=== PATIENT | female | born 1990 | race African-American/Black ===

== ENCOUNTER 2017-12-16 09:59 | Emergency (ER) | payer BC, OTHER ==
[2017-12-16 10:04] VITALS: RESP 18
[2017-12-16] MEDS ORDERED: ACETAMINOPHEN TAB 325 MG TAB PO STA (10:59)
[2017-12-16 12:44] LABS: Basophils % (A) 1 %; Eosinophils # (A) 0.1 k/uL (0-0.7); Eosinophils % (A) 1 %; HCT 42.3 % (34.0-46.0); HGB 13.7 gm/dL (11.4-16.0); Lymphocytes # (A) 1.8 k/uL (1.0-4.8); Lymphocytes % (A) 28 %; MCH 28.9 pg (25.0-35.0); MCHC 32.5 g/dL (31.0-37.0); MCV 88.7 fL (80.0-100.0); Mean Platelet Volume 7.1; Monocytes # (A) 0.2 k/uL (0-1.0); Monocytes % (A) 4 %; Neutrophils # (A) 4.1 k/uL (1.3-7.7); Neutrophils % (A) 65 %; Platelet Count 317 k/uL (150-450); RBC 4.76 m/uL (3.80-5.40); RDW 13.6 % (11.5-15.5); WBC 6.3 k/uL (3.8-10.6)
--- NOTE | 2017-12-16 12:48 | US ---
EXAMINATION TYPE: Transabdominal DATE OF EXAM: 05/28/17 COMPARISON: NONE CLINICAL HISTORY: LLQ cramping. Left pelvic cramping, history of 2 D&C's EXAM PERFORMED: Transvaginal (TV) and Transabdominal (TA) EXAM MEASUREMENTS: GESTATIONAL AGE / DATING Physician Established: Not yet established Dates by LMP: (5 weeks/0 days) EDC: 08/18/18 Dates by First Scan: no prior scan here Dates by Current Scan for: Unable to date by today's study MATERNAL ANATOMY Uterus: 8.4 x 5.4 x 6.3cm Right Ovary: 7.0 x 3.9 x 5.0cm Left Ovary: 3.5 x 2.6 x 2.1cm Post CDS / Adnexa: free fluid right adnexa and cul-de-sac Presence of free fluid: yes Presence of corpus luteal cyst: yes, left ovary = 2.5 x 2.1 x 1.7cm GESTATION / SURVEY MSD: 0.8cm too small to accurately date Yolk Sac (normal less than 6mm): not seen No evidence of pole at this time Date of LMP: 11/11/17 Beta HcG (if available): Not available at this time Possible gestational sac visualized within uterus. No evidence of pole or yolk sac at this time . Cystic area right ovary = 5.9 x 3.7 x 5.6cm. Possible corpus luteum left ovary. Free fluid right ad nexa and cul-de-sac IMPRESSION: 1. Probable Intrauterine gestational sac without pole identified. The findings might reflect no rmal early IUP however blighted ovum or missed spontaneous difficult to exclude. Correlate c linically with serial beta hCG and/or ultrasound. 2. Probable left ovarian corpus luteal cyst. Small amount of free fluid noted.
[2017-12-16 12:57] LABS: ALT 21 U/L (9-52); AST 14 U/L (14-36); Albumin 3.9 g/dL (3.5-5.0); Alkaline Phosphatase 95 U/L (38-126); Anion Gap 7 mmol/L; Blood Urea Nitrogen 8 mg/dL (7-17); Calcium 9.7 mg/dL (8.4-10.2); Carbon Dioxide 24 mmol/L (22-30); Chloride 107 mmol/L (98-107); Glucose 85 mg/dL (74-99); Potassium 4.3 mmol/L (3.5-5.1); Sodium 138 mmol/L (137-145); Total Bilirubin 0.5 mg/dL (0.2-1.3); Total Protein 7.5 g/dL (6.3-8.2)
[2017-12-16 13:01] LABS: Appearance,Urine Clear (Clear); Bilirubin,Urine Negative (Negative); Blood,Urine Negative (Negative); Color,Urine Colorless; Glucose,Urine (UA) Negative (Negative); Ketones,Urine Negative (Negative); Leukocyte Esterase,Urine Negative (Negative); Nitrite,Urine Negative (Negative); PH, Urine 6.5 (5.0-8.0); Protein,Urine Negative (Negative); Specific Gravity,Urine 1.002 (1.001-1.035); Urobilinogen,Urine <2.0 mg/dL (<2.0)
--- NOTE | 2017-12-16 14:39 | ED ---
Abdominal Pain HPI - General Chief Complaint: Abdominal Pain Stated Complaint: 6wks preg, abd pain Time Seen by Provider: 12/16/17 10:45 Source: patient Mode of arrival: ambulatory Limitations: no limitations - History of Present Illness Initial Comments: 27-year-old female presenting today for chief complaint of vaginal discharge and left-sided pelvic pain pain times one day. Patient states that she's had vaginal discharge for 2 months, she states she was evaluated by another physician where testing was obtained negative for STD. Patient denies any new changes in discharge. Patient denies fever, chills or right upper quadrant pain. Patient states that she has had left-sided pelvic pain that began earlier this afternoon, she was concerned and presented to the emergency department. Patient says she should be 6 weeks , LMP 11/11/17. 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 Fraga, yet but is scheduled for an appointment. She states that she has had a quantitative hCG of 450 taken last week. Patient denies vaginal bleeding, nausea, vomiting, diarrhea, fever, chills and other associated symptoms. Remainder of ROS negative. Upon arrival patient appears well. No signs of acute distress. - Related Data Home Medications Medication Instructions Recorded Confirmed Acetaminophen Tab [Tylenol Tab] 500 mg PO Q6H PRN 12/16/17 12/16/17 Ffu-Dtxc-[id number] Acid 1 cap PO DAILY 12/16/17 12/16/17 [-U Capsule (formulary)] Allergies Allergy/AdvReac Type Severity Reaction Status Date / Time No Known Allergies Allergy Verified 12/16/17 10:19 Review of Systems ROS Statement: Those systems with pertinent positive or pertinent negative responses have been documented in the HPI. ROS Other: All systems not noted in ROS Statement are negative. Constitutional: Denies: fever, chills, night sweats ENT: Denies: ear pain, throat pain Respiratory: Denies: cough, dyspnea, wheezes, hemoptysis, stridor Cardiovascular: Denies: chest pain, palpitations Endocrine: Denies: fatigue Gastrointestinal: Reports: as per HPI (left sided pelvic pain). Denies: abdominal pain, nausea, vomiting, diarrhea, constipation Genitourinary: Denies: urgency, dysuria, frequency, hematuria Musculoskeletal: Denies: back pain Skin: Denies: rash, lesions Neurological: Denies: headache, weakness, numbness, paresthesias, confusion Past Medical History Past Medical History: No Reported History History of Any Multi-Drug Resistant Organisms: MRSA Date of last positivie culture/infection: 09/21/2008 MDRO Source:: Urine Past Surgical History: Adenoidectomy, Tonsillectomy Additional Past Surgical History / Comment(s): D&C Past Anesthesia/Blood Transfusion Reactions: No Reported Reaction Past Psychological History: Anxiety Smoking Status: Current every day smoker Past Alcohol Use History: None Reported Past Drug Use History: None Reported - Past Family History Mother Family Medical History: No Reported History General Exam - General Exam Comments Initial Comments: General: The patient is awake and alert, in no distress, and does not appear acutely ill. Eye: Pupils are equal, round and reactive to light, extra-ocular movements are intact. No nystagmus. There is normal conjunctiva bilaterally. No signs of icterus. Cardiovascular: There is a regular rate and rhythm. No murmur, rub or gallop is appreciated. Respiratory: Lungs are clear to auscultation, respirations are non-labored, breath sounds are equal. No wheezes, stridor, rales, or rhonchi. Gastrointestinal: No noted diaphoresis, jaundice, pallor, protecting postures or squirming. Symmetrical pigmentation of abdomen without signs of inflammation. Striae present over abdomen. Umbilicus mildline, inverted without swelling. No dilated veins. Abdomen contour obese, no noted abdominal distention. No visible masses. No peristalsis, aortic pulsations, or ventral hernia. Bowel sounds audible in all 4 quadrants, unremarkable. Mild tenderness to the palpation of the lower pelvic region. No tenderness to light or deep palpation of the RUQ, LUQ, LLQ, RLQ. Liver edge, not palpable. Spleen edge, right and left kidney not palpable. Superior bladder margin non-tender. Special Testing: Negative Grahn, Rovsing, McBurney, Andrei, Negative Heel Jar test/clemente sign. No CVA tenderness. Digital rectal exam deferred. Negative stanley turners or cullens sign. See Pelvic exam. Musculoskeletal: Normal ROM, no tenderness. Strength 5/5. Sensation intact. Radial pulses equal bilaterally 2+. Neurological: A&O x 3. CN II-XII intact, There are no obvious motor or sensory deficits. Coordination appears grossly intact. Speech is normal. Skin: Skin is warm and dry and no rashes or lesions are noted. Psychiatric: Cooperative, appropriate mood & affect, normal judgment. Limitations: no limitations External exam: Present: normal external exam Speculum exam: Present: vaginal discharge (white discharge). Absent: erythema, cervical discharge, vaginal bleeding, laceration By manual exam: Present: normal by manual exam, uterine enlargement. Absent: cervical motion tenderness, adnexal tenderness, adnexal mass Expanded Female exam: Absent: vaginal laceration, tissue present in vagina, herpetic lesions, vulvar erythema, vulvar tenderness, foreign body Speculum exam: Present: cervical OS closed Course Vital Signs 12/16/17 12/16/17 12/16/17 10:00 12:53 14:46 Temperature 98.1 F 98.0 F Pulse Rate 130 H 79 96 Respiratory 18 18 18 Rate Blood Pressure 132/86 114/70 120/73 O2 Sat by Pulse 98 99 98 Oximetry Medical Decision Making - Medical Decision Making PE as noted above, no adnexal tenderness on exam, negative chandelier sign, Os closed. U/S revealed gestational sac, most likely blight ovum as well as a corpus luteum cyst on the left ovary, with small amount of free fluid in anexa most likely from rupture corpus luteal cyst. Pt states she does not want to keep . HGB 9,120. Pt trichomonas (+). Pt given 2g metronidazole for treatment, findings discussed with patient as well as importance of treating partner. Dr. Ness was contacted who spoke with attending phyiscian Dr. Flores who stated pt is stable for discharge with follow-up including U/S and repeat HCG quant. Pt is O+ upon chart review no RhoGam needed at this time. Case discussed with Dr. Flores, pt discharged in stable condition after discussing all results with patient. Return parameters discussed in detail. Patient verbalizes understanding. - Lab Data Result diagrams: 12/16/17 12:30 12/16/17 12:30 Lab Results 12/16/17 12/16/17 12/16/17 Range/Units 12:30 12:30 12:30 WBC 6.3 (3.8-10.6) k/uL RBC 4.76 (3.80-5.40) m/uL Hgb 13.7 (11.4-16.0) gm/dL Hct 42.3 (34.0-46.0) % MCV 88.7 (80.0-100.0) fL MCH 28.9 (25.0-35.0) pg MCHC 32.5 (31.0-37.0) g/dL RDW 13.6 (11.5-15.5) % Plt Count 317 (150-450) k/uL Neutrophils % 65 % Lymphocytes % 28 % Monocytes % 4 % Eosinophils % 1 % Basophils % 1 % Neutrophils # 4.1 (1.3-7.7) k/uL Lymphocytes # 1.8 (1.0-4.8) k/uL Monocytes # 0.2 (0-1.0) k/uL Eosinophils # 0.1 (0-0.7) k/uL Basophils # 0.0 (0-0.2) k/uL Sodium 138 (137-145) mmol/L Potassium 4.3 (3.5-5.1) mmol/L Chloride 107 (98-107) mmol/L Carbon Dioxide 24 (22-30) mmol/L Anion Gap 7 mmol/L BUN 8 (7-17) mg/dL Creatinine 0.64 (0.52-1.04) mg/dL Est GFR (CKD-EPI)AfAm >90 (>60 ml/min/1.73 sqM) Est GFR (CKD-EPI)NonAf >90 (>60 ml/min/1.73 sqM) Glucose 85 (74-99) mg/dL Calcium 9.7 (8.4-10.2) mg/dL Total Bilirubin 0.5 (0.2-1.3) mg/dL AST 14 (14-36) U/L ALT 21 (9-52) U/L Alkaline Phosphatase 95 (38-126) U/L Total Protein 7.5 (6.3-8.2) g/dL Albumin 3.9 (3.5-5.0) g/dL HCG, Quant 9120.8 mIU/mL Urine Color Urine Appearance (Clear) Urine pH (5.0-8.0) Ur Specific Jackson (1.001-1.035) Urine Protein (Negative) Urine Glucose (UA) (Negative) Urine Ketones (Negative) Urine Blood (Negative) Urine Nitrite (Negative) Urine Bilirubin (Negative) Urine Urobilinogen (<2.0) mg/dL Ur Leukocyte Esterase (Negative) Urine HCG, Qual (Not Detectd) Trichomonas Ag (Rapid) (Negative) 12/16/17 12/16/17 12/16/17 Range/Units 12:56 12:56 14:11 WBC (3.8-10.6) k/uL RBC (3.80-5.40) m/uL Hgb (11.4-16.0) gm/dL Hct (34.0-46.0) % MCV (80.0-100.0) fL MCH (25.0-35.0) pg MCHC (31.0-37.0) g/dL RDW (11.5-15.5) % Plt Count (150-450) k/uL Neutrophils % % Lymphocytes % % Monocytes % % Eosinophils % % Basophils % % Neutrophils # (1.3-7.7) k/uL Lymphocytes # (1.0-4.8) k/uL Monocytes # (0-1.0) k/uL Eosinophils # (0-0.7) k/uL Basophils # (0-0.2) k/uL Sodium (137-145) mmol/L Potassium (3.5-5.1) mmol/L Chloride (98-107) mmol/L Carbon Dioxide (22-30) mmol/L Anion Gap mmol/L BUN (7-17) mg/dL Creatinine (0.52-1.04) mg/dL Est GFR (CKD-EPI)AfAm (>60 ml/min/1.73 sqM) Est GFR (CKD-EPI)NonAf (>60 ml/min/1.73 sqM) Glucose (74-99) mg/dL Calcium (8.4-10.2) mg/dL Total Bilirubin (0.2-1.3) mg/dL AST (14-36) U/L ALT (9-52) U/L Alkaline Phosphatase (38-126) U/L Total Protein (6.3-8.2) g/dL Albumin (3.5-5.0) g/dL HCG, Quant mIU/mL Urine Color Colorless Urine Appearance Clear (Clear) Urine pH 6.5 (5.0-8.0) Ur Specific Jackson 1.002 (1.001-1.035) Urine Protein Negative (Negative) Urine Glucose (UA) Negative (Negative) Urine Ketones Negative (Negative) Urine Blood Negative (Negative) Urine Nitrite Negative (Negative) Urine Bilirubin Negative (Negative) Urine Urobilinogen <2.0 (<2.0) mg/dL Ur Leukocyte Esterase Negative (Negative) Urine HCG, Qual Detected (Not Detectd) Trichomonas Ag (Rapid) Positive H (Negative) Disposition Clinical Impression: Blighted ovum, Corpus luteum cyst, Trichomonas infection Disposition: HOME SELF-CARE Condition: Good Instructions: Vaginal Discharge (ED) Additional Instructions: Please use medication as discussed. Please follow-up with OBGYN Dr. Ness in next 1-2 days. Please return to emergency room if the symptoms increase or worsen or for any other concerns. Is patient prescribed a controlled substance at d/c from ED?: No Referrals: Marcia Donnelly MD [Primary Care Provider] - 1-2 days Catie Ness MD [STAFF PHYSICIAN] - 1-2 days Time of Disposition: 14:39
[2017-12-16 14:47] VITALS: BP 120/73; PULSE 96; TEMP 98
[2017-12-16] MEDS ORDERED: metroNIDAZOLE 500 MG TAB PO STA (14:49)
[2017-12-17 14:30] LABS: C. trachomatis,PCR Negative (Neg,Equiv); Chlamydia trachomatis Source Vagina; N. gonorrhoeae,PCR Negative (Neg,Equiv); Neisseria Source Vagina
== END 2017-12-16 14:50 | disposition home or self-care (01) ==
LOC: EC 09:59
DX: O02.0 Blighted ovum and nonhydatidiform mole (principal); N83.12 Corpus luteum cyst of left ovary; O98.311 Other infections with a predominantly sexual mode of transmission complicating pregnancy, first trimester; Z3A.01 Less than 8 weeks gestation of pregnancy; O99.331 Smoking (tobacco) complicating pregnancy, first trimester; F17.200 Nicotine dependence, unspecified, uncomplicated; Z86.14 Personal history of Methicillin resistant Staphylococcus aureus infection
CPT/HCPCS: 36415; 76801; 76817; 80053; 81003; 81025; 84702; 85025; 87491; 87591; 87808; 99284

== ENCOUNTER 2018-01-24 10:49 | Emergency (ER) | payer BC ==
[2018-01-24 10:53] VITALS: RESP 18
[2018-01-24] MEDS ORDERED: SODIUM CHLORIDE 0.9% 1,000 ML IV STA ×2 (11:25)
[2018-01-24] MEDS ORDERED: ACETAMINOPHEN IV (For NPO) 1,000 MG in EMPTY BAG 1 BAG IVPB ONE (11:26)
[2018-01-24] MEDS ORDERED: METOCLOPRAMIDE 5 MG/ML 2 ML VIAL IVP STA (11:27)
[2018-01-24 12:37] LABS: Basophils % (A) 0 %; Eosinophils # (A) 0.1 k/uL (0-0.7); Eosinophils % (A) 1 %; HCT 39.3 % (34.0-46.0); HGB 12.9 gm/dL (11.4-16.0); Lymphocytes # (A) 1.6 k/uL (1.0-4.8); Lymphocytes % (A) 25 %; MCH 29.2 pg (25.0-35.0); MCHC 32.9 g/dL (31.0-37.0); MCV 88.6 fL (80.0-100.0); Mean Platelet Volume 6.7; Monocytes # (A) 0.3 k/uL (0-1.0); Monocytes % (A) 4 %; Neutrophils # (A) 4.3 k/uL (1.3-7.7); Neutrophils % (A) 69 %; Platelet Count 274 k/uL (150-450); RBC 4.44 m/uL (3.80-5.40); RDW 13.9 % (11.5-15.5); WBC 6.3 k/uL (3.8-10.6)
[2018-01-24 12:43] LABS: Anion Gap 10 mmol/L; Blood Urea Nitrogen 7 mg/dL (7-17); Calcium 9.5 mg/dL (8.4-10.2); Carbon Dioxide 23 mmol/L (22-30); Chloride 105 mmol/L (98-107); Glucose 79 mg/dL (74-99); Potassium 3.9 mmol/L (3.5-5.1); Sodium 138 mmol/L (137-145)
[2018-01-24 12:49] LABS: Appearance,Urine Clear (Clear); Bilirubin,Urine Negative (Negative); Blood,Urine Negative (Negative); Color,Urine Yellow; Glucose,Urine (UA) Negative (Negative); Ketones,Urine Negative (Negative); Leukocyte Esterase,Urine Negative (Negative); Nitrite,Urine Negative (Negative); Protein,Urine Trace (Negative); Specific Gravity,Urine 1.018 (1.001-1.035); Urobilinogen,Urine <2.0 mg/dL (<2.0)
--- NOTE | 2018-01-24 13:06 | US ---
EXAMINATION TYPE: Transabdominal DATE OF EXAM: 05/28/17 COMPARISON: NONE CLINICAL HISTORY: Pain. EXAM PERFORMED: Transabdominal (TA) EXAM MEASUREMENTS: GESTATIONAL AGE / DATING Physician Established: (10 weeks/6 days) EDC: 08/16/2018 Dates by LMP: (10 weeks/6 days) EDC: 08/16/2018 Dates by First Scan: Unable to date by previous scan Dates by Current Scan for: (11 weeks/1 days) EDC: 08/14/2018 MATERNAL ANATOMY Uterus: 11.6 x 8.4 x 8.5 cm Right Ovary: 2.6 x 2.6 x 1.9 cm Left Ovary: 3.3 x 1.5 x 2.6 cm Post CDS / Adnexa: wnl Presence of free fluid: No Presence of corpus luteal cyst: Cystic area right ovary measuring 1.8 x 1.2 x 0.9 cm. This measured 5.9 x 3.7 x 5.6cm on 12/16/2017. Presence of subchorionic bleed: yes to the left of the gestational sac measuring, 2.4 x 1.1 x 1.0 cm GESTATION / SURVEY CRL: 4.3 cm (11 weeks/1 days) Yolk Sac (normal less than 6mm): 4mm Heart Rate: 170 bpm Rhythm: Normal IUP: Viable IUP Date of LMP: Unsure Beta HcG (if available): Not available at this time IMPRESSION: Viable IUP with an JENNIFER of 08/14/2017.
--- NOTE | 2018-01-24 13:26 | ED ---
Abdominal Pain HPI - General Chief Complaint: Abdominal Pain Stated Complaint: Abd Pain-11 wks Time Seen by Provider: 01/24/18 11:18 Source: patient Mode of arrival: ambulatory Limitations: no limitations - History of Present Illness Initial Comments: This 27-year-old white female presents complaining of some abdominal pain. This is present to the bilateral lower abdomen. She states that it is been present over the past several days. She currently is approximately 10 weeks . She did have an ultrasound at approximately 6 weeks and this did show an intrauterine . She did have an ovarian cyst. She denies any fevers, chills, vomiting, diarrhea, or constipation. She has had chronic nausea throughout her and does not take anything for it. She has tried some Tylenol with limited relief of the pain. She denies any urinary symptoms. No other complaints or modifying factors. - Related Data Home Medications Medication Instructions Recorded Confirmed Ozz-Xbfs-Jbwkj Acid 1 cap PO DAILY 12/16/17 01/24/18 [-U Capsule (formulary)] Previous Rx's Medication Instructions Recorded Metoclopramide [Reglan] 10 mg PO Q6H PRN #20 tab 01/24/18 Allergies Allergy/AdvReac Type Severity Reaction Status Date / Time No Known Allergies Allergy Verified 01/24/18 12:17 Review of Systems ROS Statement: Those systems with pertinent positive or pertinent negative responses have been documented in the HPI. ROS Other: All systems not noted in ROS Statement are negative. Past Medical History Past Medical History: No Reported History History of Any Multi-Drug Resistant Organisms: MRSA Date of last positivie culture/infection: 09/21/2008 MDRO Source:: Urine Past Surgical History: Adenoidectomy, Tonsillectomy Additional Past Surgical History / Comment(s): D&C Past Anesthesia/Blood Transfusion Reactions: No Reported Reaction Past Psychological History: Anxiety Smoking Status: Former smoker Past Alcohol Use History: None Reported Past Drug Use History: None Reported - Past Family History Mother Family Medical History: No Reported History General Exam - General Exam Comments Initial Comments: GENERAL: The patient is well nourished and well hydrated. VITAL SIGNS: Heart rate, blood pressure, respiratory rate reviewed as recorded in nurse's notes. EYES: Pupils are round and reactive. Extraocular movements are intact. No conjunctival / lid redness or swelling. ENT: No external evidence of injury, swelling, or ecchymosis. Airway is patent. Throat is clear. NECK: Nontender. No swelling or evidence of injury. No subcutaneous emphysema. Trachea is midline. No thyroid mass. HEART: Regular rate and rhythm. Good peripheral pulses. LUNGS/CHEST: Breath sounds clear and equal bilaterally. No rales, rhonchi, or wheezes. No ecchymosis, subcutaneous emphysema, or tenderness. ABDOMEN: There is mild tenderness noted to the bilateral lower abdomen. No palpable masses or organomegaly. No peritoneal signs. No abdominal wall swelling or ecchymosis. EXTREMITIES: No extremity tenderness. Normal muscle tone and function. No thoracolumbar tenderness. NEUROLOGIC: Sensation is grossly intact. Cranial nerve exam reveals face is symmetrical, tongue is midline, speech is clear. SKIN: No abrasions or ecchymosis is noted. No induration or masses noted. PSYCHIATRIC: Alert and oriented. Appropriate behavior and judgment. Limitations: no limitations Course Vital Signs 01/24/18 10:50 Temperature 97.8 F Pulse Rate 122 H Respiratory 18 Rate Blood Pressure 145/84 O2 Sat by Pulse 100 Oximetry Medical Decision Making - Medical Decision Making The patient was seen and examined. All diagnostics are reviewed. The laboratory and urinalysis are unremarkable. The pelvic ultrasound does show a slight right ovarian cyst which is improved from prior exam. It also shows a 11 week 1 day intrauterine with heart rate of 170. The patient did receive IV fluids as well as IV Ofirmev and Reglan. She is feeling remarkably improved on recheck. 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 She understands and agrees and leaves in no distress. - Lab Data Result diagrams: 01/24/18 12:00 01/24/18 12:00 Lab Results 01/24/18 01/24/18 01/24/18 Range/Units 12:00 12:00 12:00 WBC 6.3 (3.8-10.6) k/uL RBC 4.44 (3.80-5.40) m/uL Hgb 12.9 (11.4-16.0) gm/dL Hct 39.3 (34.0-46.0) % MCV 88.6 (80.0-100.0) fL MCH 29.2 (25.0-35.0) pg MCHC 32.9 (31.0-37.0) g/dL RDW 13.9 (11.5-15.5) % Plt Count 274 (150-450) k/uL Neutrophils % 69 % Lymphocytes % 25 % Monocytes % 4 % Eosinophils % 1 % Basophils % 0 % Neutrophils # 4.3 (1.3-7.7) k/uL Lymphocytes # 1.6 (1.0-4.8) k/uL Monocytes # 0.3 (0-1.0) k/uL Eosinophils # 0.1 (0-0.7) k/uL Basophils # 0.0 (0-0.2) k/uL Sodium 138 (137-145) mmol/L Potassium 3.9 (3.5-5.1) mmol/L Chloride 105 (98-107) mmol/L Carbon Dioxide 23 (22-30) mmol/L Anion Gap 10 mmol/L BUN 7 (7-17) mg/dL Creatinine 0.52 (0.52-1.04) mg/dL Est GFR (CKD-EPI)AfAm >90 (>60 ml/min/1.73 sqM) Est GFR (CKD-EPI)NonAf >90 (>60 ml/min/1.73 sqM) Glucose 79 (74-99) mg/dL Calcium 9.5 (8.4-10.2) mg/dL Urine Color Yellow Urine Appearance Clear (Clear) Urine pH 7.0 (5.0-8.0) Ur Specific Drummond 1.018 (1.001-1.035) Urine Protein Trace H (Negative) Urine Glucose (UA) Negative (Negative) Urine Ketones Negative (Negative) Urine Blood Negative (Negative) Urine Nitrite Negative (Negative) Urine Bilirubin Negative (Negative) Urine Urobilinogen <2.0 (<2.0) mg/dL Ur Leukocyte Esterase Negative (Negative) Disposition Clinical Impression: Abdominal pain during , Nausea, Ovarian cyst Disposition: HOME SELF-CARE Condition: Good Instructions: Abdominal Pain in (ED), Nausea and Vomiting in (ED), Ovarian Cyst (ED) Additional Instructions: Please use Tylenol if needed for pain. Prescriptions: Metoclopramide [Reglan] 10 mg PO Q6H PRN #20 tab PRN Reason: Nausea Is patient prescribed a controlled substance at d/c from ED?: No Referrals: Marcia Donnelly MD [Primary Care Provider] - 1-2 days Time of Disposition: 13:26
[2018-01-24 13:40] VITALS: BP 116/78; PULSE 82; TEMP 98.4
== END 2018-01-24 13:40 | disposition home or self-care (01) ==
LOC: EC 10:49
DX: O99.89 Other specified diseases and conditions complicating pregnancy, childbirth and the puerperium (principal); N83.201 Unspecified ovarian cyst, right side; R10.31 Right lower quadrant pain; R10.32 Left lower quadrant pain; Z3A.11 11 weeks gestation of pregnancy; Z86.14 Personal history of Methicillin resistant Staphylococcus aureus infection; Z87.891 Personal history of nicotine dependence
CPT/HCPCS: 36415; 80048; 85025; 81003; 84702; 76801; 99284; 96374; 96375; 96361; J2765; J0131

== ENCOUNTER 2018-02-21 12:07 | Emergency (ER) | payer BC ==
[2018-02-21 12:15] VITALS: TEMP 97.6
[2018-02-21] MEDS ORDERED: SODIUM CHLORIDE 0.9% 1,000 ML IV STA (12:50)
[2018-02-21 13:38] LABS: Basophils % (A) 0 %; Eosinophils # (A) 0.1 k/uL (0-0.7); Eosinophils % (A) 1 %; HCT 36.9 % (34.0-46.0); HGB 12.8 gm/dL (11.4-16.0); Lymphocytes # (A) 1.7 k/uL (1.0-4.8); Lymphocytes % (A) 23 %; MCH 30.3 pg (25.0-35.0); MCHC 34.7 g/dL (31.0-37.0); MCV 87.2 fL (80.0-100.0); Mean Platelet Volume 6.8; Monocytes # (A) 0.2 k/uL (0-1.0); Monocytes % (A) 3 %; Neutrophils # (A) 5.1 k/uL (1.3-7.7); Neutrophils % (A) 71 %; Platelet Count 249 k/uL (150-450); RBC 4.23 m/uL (3.80-5.40); RDW 13.8 % (11.5-15.5); WBC 7.2 k/uL (3.8-10.6)
--- NOTE | 2018-02-21 13:49 | ED ---
Abdominal Pain HPI - General Chief Complaint: Abdominal Pain Stated Complaint: 15wks preg, cramping/spotting Time Seen by Provider: 02/21/18 12:20 Source: patient, RN notes reviewed, old records reviewed Mode of arrival: ambulatory Limitations: no limitations - History of Present Illness Initial Comments: Patient is a 19-year-old female, currently 15 weeks . She does return today with chief complaint of Left-sided abdominal pain, cramping. Patient reports that this is her sixth , she has 2 living children. Patient has no fevers or chills. She reports that her spotting and left-sided abdominal concerns today. Patient's HAULAGE BOSS is Dr. Fuentes. Patient states she is under a lot of stress. She did admit to having depression and occasional suicidal thoughts but denies any intent or plan. - Related Data Home Medications Medication Instructions Recorded Confirmed Slg-Fkiu-Rvcap Acid 1 cap PO DAILY 12/16/17 02/21/18 [-U Capsule (formulary)] Acetaminophen Tab [Tylenol Tab] 1,000 mg PO Q6HR PRN 02/21/18 02/21/18 Previous Rx's Medication Instructions Recorded Cephalexin [Keflex] 500 mg PO Q6HR #20 cap 02/21/18 Allergies Allergy/AdvReac Type Severity Reaction Status Date / Time No Known Allergies Allergy Verified 02/21/18 12:27 Review of Systems ROS Statement: Those systems with pertinent positive or pertinent negative responses have been documented in the HPI. ROS Other: All systems not noted in ROS Statement are negative. Past Medical History Past Medical History: No Reported History Additional Past Medical History / Comment(s): incompetent cervix History of Any Multi-Drug Resistant Organisms: MRSA Date of last positivie culture/infection: 09/21/2008 MDRO Source:: Urine Past Surgical History: Adenoidectomy, Tonsillectomy Additional Past Surgical History / Comment(s): D&C Past Anesthesia/Blood Transfusion Reactions: No Reported Reaction Additional Past Anesthesia/Blood Transfusion Reaction / Comment(s): no hx blood transfusion Past Psychological History: Anxiety Smoking Status: Former smoker Past Alcohol Use History: None Reported Past Drug Use History: None Reported - Past Family History Mother Family Medical History: No Reported History General Exam - General Exam Comments Initial Comments: This is a 27-year-old female. Alert and oriented. No distress. Limitations: no limitations General appearance: alert, in no apparent distress Head exam: Present: atraumatic, normocephalic, normal inspection Eye exam: Present: normal appearance, PERRL, EOMI. Absent: scleral icterus, conjunctival injection, periorbital swelling ENT exam: Present: normal exam, mucous membranes moist Neck exam: Present: normal inspection. Absent: tenderness, meningismus, lymphadenopathy Respiratory exam: Present: normal lung sounds bilaterally. Absent: respiratory distress, wheezes, rales, rhonchi, stridor Cardiovascular Exam: Present: regular rate, normal rhythm, normal heart sounds. Absent: systolic murmur, diastolic murmur, rubs, gallop, clicks GI/Abdominal exam: Present: soft, normal bowel sounds. Absent: distended, tenderness, guarding, rebound, rigid External exam: Present: other (Patient refused) Extremities exam: Present: normal inspection, full ROM, normal capillary refill. Absent: tenderness, pedal edema, joint swelling, calf tenderness Back exam: Present: normal inspection Neurological exam: Present: alert, oriented X3, CN II-XII intact Psychiatric exam: Present: normal affect, normal mood Skin exam: Present: warm, dry, intact, normal color. Absent: rash Course Vital Signs 02/21/18 02/21/18 02/21/18 12:11 12:50 15:19 Temperature 97.6 F Pulse Rate 124 H 93 89 Respiratory 20 18 Rate Blood Pressure 142/86 132/69 O2 Sat by Pulse 98 97 Oximetry Medical Decision Making - Medical Decision Making 19-year-old female presented to our service today with chief complaint of spotting, and left-sided abdominal pain. Patient is currently 15 weeks . Patient was given IV fluids labwork was obtained. Patient ultrasound does show evidence of a viable IUP with a moderate subchorionic bleed. Patient reports she's had some crampy before. Next week she is scheduled to have the cerclage due to incompetent cervix. Patient was upset at the 2 hour ER stay and when he went to the pelvic Patient then refused. Patient states she wants to be discharged. I did discuss with her urine sample we will treat the Patient for asymptomatic bacteriuria. She did mention that she is depressed but she has no suicidal intention or thoughts. This was assessed multiple times the Patient states that she feels safe to has no intention of harming herself. I discussed that she should follow-up with her primary care physician and [facility]. She does have an appointment scheduled this week with her OB. - Lab Data Result diagrams: 02/21/18 13:11 02/21/18 13:11 Lab Results 02/21/18 02/21/18 02/21/18 Range/Units 13:11 13:11 13:11 WBC (3.8-10.6) k/uL RBC (3.80-5.40) m/uL Hgb (11.4-16.0) gm/dL Hct (34.0-46.0) % MCV (80.0-100.0) fL MCH (25.0-35.0) pg MCHC (31.0-37.0) g/dL RDW (11.5-15.5) % Plt Count (150-450) k/uL Neutrophils % % Lymphocytes % % Monocytes % % Eosinophils % % Basophils % % Neutrophils # (1.3-7.7) k/uL Lymphocytes # (1.0-4.8) k/uL Monocytes # (0-1.0) k/uL Eosinophils # (0-0.7) k/uL Basophils # (0-0.2) k/uL Sodium (137-145) mmol/L Potassium (3.5-5.1) mmol/L Chloride (98-107) mmol/L Carbon Dioxide (22-30) mmol/L Anion Gap mmol/L BUN (7-17) mg/dL Creatinine (0.52-1.04) mg/dL Est GFR (CKD-EPI)AfAm (>60 ml/min/1.73 sqM) Est GFR (CKD-EPI)NonAf (>60 ml/min/1.73 sqM) Glucose (74-99) mg/dL Calcium (8.4-10.2) mg/dL Total Bilirubin (0.2-1.3) mg/dL AST (14-36) U/L ALT (9-52) U/L Alkaline Phosphatase (38-126) U/L Total Protein (6.3-8.2) g/dL Albumin (3.5-5.0) g/dL Amylase (30-110) U/L Lipase (23-300) U/L Urine Color Yellow Urine Appearance Clear (Clear) Urine pH 6.5 (5.0-8.0) Ur Specific [place] 1.018 (1.001-1.035) Urine Protein Trace H (Negative) Urine Glucose (UA) Negative (Negative) Urine Ketones Trace H (Negative) Urine Blood Trace H (Negative) Urine Nitrite Negative (Negative) Urine Bilirubin Negative (Negative) Urine Urobilinogen <2.0 (<2.0) mg/dL Ur Leukocyte Esterase Negative (Negative) Urine RBC 2 (0-5) /hpf Urine WBC 1 (0-5) /hpf Ur Squamous Epith Cells 1 (0-4) /hpf Urine Bacteria Rare H (None) /hpf Urine Mucus Occasional H (None) /hpf Urine HCG, Qual Detected (Not Detectd) Blood Type A Positive Blood Type Recheck No 02/21/18 02/21/18 Range/Units 13:11 13:11 WBC 7.2 (3.8-10.6) k/uL RBC 4.23 (3.80-5.40) m/uL Hgb 12.8 (11.4-16.0) gm/dL Hct 36.9 (34.0-46.0) % MCV 87.2 (80.0-100.0) fL MCH 30.3 (25.0-35.0) pg MCHC 34.7 (31.0-37.0) g/dL RDW 13.8 (11.5-15.5) % Plt Count 249 (150-450) k/uL Neutrophils % 71 % Lymphocytes % 23 % Monocytes % 3 % Eosinophils % 1 % Basophils % 0 % Neutrophils # 5.1 (1.3-7.7) k/uL Lymphocytes # 1.7 (1.0-4.8) k/uL Monocytes # 0.2 (0-1.0) k/uL Eosinophils # 0.1 (0-0.7) k/uL Basophils # 0.0 (0-0.2) k/uL Sodium 138 (137-145) mmol/L Potassium 3.5 (3.5-5.1) mmol/L Chloride 108 H (98-107) mmol/L Carbon Dioxide 21 L (22-30) mmol/L Anion Gap 9 mmol/L BUN 6 L (7-17) mg/dL Creatinine 0.51 L (0.52-1.04) mg/dL Est GFR (CKD-EPI)AfAm >90 (>60 ml/min/1.73 sqM) Est GFR (CKD-EPI)NonAf >90 (>60 ml/min/1.73 sqM) Glucose 82 (74-99) mg/dL Calcium 9.5 (8.4-10.2) mg/dL Total Bilirubin 0.3 (0.2-1.3) mg/dL AST 19 (14-36) U/L ALT 21 (9-52) U/L Alkaline Phosphatase 76 (38-126) U/L Total Protein 7.2 (6.3-8.2) g/dL Albumin 3.7 (3.5-5.0) g/dL Amylase 85 (30-110) U/L Lipase 56 (23-300) U/L Urine Color Urine Appearance (Clear) Urine pH (5.0-8.0) Ur Specific [place] (1.001-1.035) Urine Protein (Negative) Urine Glucose (UA) (Negative) Urine Ketones (Negative) Urine Blood (Negative) Urine Nitrite (Negative) Urine Bilirubin (Negative) Urine Urobilinogen (<2.0) mg/dL Ur Leukocyte Esterase (Negative) Urine RBC (0-5) /hpf Urine WBC (0-5) /hpf Ur Squamous Epith Cells (0-4) /hpf Urine Bacteria (None) /hpf Urine Mucus (None) /hpf Urine HCG, Qual (Not Detectd) Blood Type Blood Type Recheck - Radiology Data Radiology results: report reviewed Single IUP at 15 weeks and 4 days. Estimated delivery date of 08/11/2018. Cardiac activity is 1 49 bpm. Evidence of subchorionic hemorrhage measuring 3.9 x 0.6 x 1.1 cm. Disposition Clinical Impression: Subchorionic bleed, Asymptomatic bacteriuria during Disposition: HOME SELF-CARE Condition: Good Instructions: Subchorionic Hemorrhage (ED) Additional Instructions: Patient advised to follow-up with primary care provider and [employer]. Return to emergency department if any alarming signs or symptoms occur. Prescriptions: Cephalexin [Keflex] 500 mg PO Q6HR #20 cap Is patient prescribed a controlled substance at d/c from ED?: No Referrals: Marcia Donnelly MD [Primary Care Provider] - 1-2 days Time of Disposition: 14:52
[2018-02-21 13:50] LABS: ALT 21 U/L (9-52); AST 19 U/L (14-36); Albumin 3.7 g/dL (3.5-5.0); Alkaline Phosphatase 76 U/L (38-126); Amylase 85 U/L (30-110); Anion Gap 9 mmol/L; Blood Urea Nitrogen 6 mg/dL (7-17); Calcium 9.5 mg/dL (8.4-10.2); Carbon Dioxide 21 mmol/L (22-30); Chloride 108 mmol/L (98-107); Glucose 82 mg/dL (74-99); Lipase 56 U/L (23-300); Potassium 3.5 mmol/L (3.5-5.1); Sodium 138 mmol/L (137-145); Total Bilirubin 0.3 mg/dL (0.2-1.3); Total Protein 7.2 g/dL (6.3-8.2)
[2018-02-21 13:55] LABS: Appearance,Urine Clear (Clear); Bacteria,Urine Rare /hpf; Bilirubin,Urine Negative (Negative); Blood,Urine Trace (Negative); Color,Urine Yellow; Glucose,Urine (UA) Negative (Negative); Ketones,Urine Trace (Negative); Leukocyte Esterase,Urine Negative (Negative); Mucus,Urine Occasional /hpf; Nitrite,Urine Negative (Negative); PH, Urine 6.5 (5.0-8.0); Protein,Urine Trace (Negative); RBC,Urine 2 /hpf (0-5); Specific Gravity,Urine 1.018 (1.001-1.035); Squamous Epithelial Cell,Urine 1 /hpf (0-4); Urobilinogen,Urine <2.0 mg/dL (<2.0); WBC,Urine 1 /hpf (0-5)
--- NOTE | 2018-02-21 14:17 | US ---
EXAMINATION TYPE: US OB >= 14 wk fetus DATE OF EXAM: 02/21/2018 COMPARISON: None CLINICAL HISTORY: PainCramping, spotting TECHNIQUE: Transabdominal (TA) GESTATIONAL AGE / DATING Physician Established: (14 weeks/6 days) EDC: 08/16/18 Dates by LMP: (14 weeks/4 days) EDC: 08/18/17 Dates by First Scan: (15 weeks/1 days) EDC: 08/14/18 Dates by Current Scan: (15 weeks/4 days) EDC: 08/11/18 Beta HCG (if available): SURVEY IUP: Single PLACENTA: Anterior PREVIA: No Previa DANII: Too early to measure cm CERVICAL LENGTH (transabdominal: norm > 3.0cm): 4.1 cm Right ovary = 3.4 x 1.5 x 1.9 cm Left ovary = 4.0 x 2.4 x 1.6 cm BIOMETRY PRESENTATION: Variable LIE: Oblique BPD: 2.9 cm 15 weeks / 2 days HC: 10.6 cm 15 weeks / 0 days AC: 9.9 cm 15 weeks / 6 days FL: 1.8 cm 15 weeks / 2 days ESTIMATED WEIGHT IN GRAMS: 128.0 grams ESTIMATED WEIGHT IN LBS/OZ: 0 lbs. 5 oz. WEIGHT PERCENTAGE BASED ON ESTABLISHED DATES: 94.8% HC/AC: 1.1 Normal FL/AC: 61.2 Normal HEART RATE: 149 bpm RHYTHM: Normal Subchorionic bleed noted again = 3.9 x 0.6 x 1.1 cm IMPRESSION: 1. Single intrauterine gestation estimated at 15 weeks 4 days gestation based on current ultrasound. This would have a calculated EDC of 08/11/2018. 2. Cardiac activity measures 149 bpm. 3. Subchorionic hemorrhage
[2018-02-21 15:20] VITALS: BP 132/69; PULSE 89; RESP 18
== END 2018-02-21 15:19 | disposition home or self-care (01) ==
LOC: EC 12:07
DX: O20.8 Other hemorrhage in early pregnancy (principal); O99.89 Other specified diseases and conditions complicating pregnancy, childbirth and the puerperium; R82.71 Bacteriuria; O99.342 Other mental disorders complicating pregnancy, second trimester; F32.9 Major depressive disorder, single episode, unspecified; Z86.14 Personal history of Methicillin resistant Staphylococcus aureus infection; Z87.891 Personal history of nicotine dependence; Z3A.15 15 weeks gestation of pregnancy; Z53.20 Procedure and treatment not carried out because of patient's decision for unspecified reasons
CPT/HCPCS: 36415; 76805; 80053; 81001; 81025; 82150; 83690; 85025; 86900; 86901; 99284

== ENCOUNTER → 2018-02-26 | Outpatient (CLI) | payer BC ==
[2018-02-26 10:33] LABS: Basophils % (A) 1 %; Eosinophils # (A) 0.1 k/uL (0-0.7); Eosinophils % (A) 1 %; HCT 37.8 % (34.0-46.0); HGB 12.7 gm/dL (11.4-16.0); Lymphocytes # (A) 1.6 k/uL (1.0-4.8); Lymphocytes % (A) 23 %; MCH 29.9 pg (25.0-35.0); MCHC 33.7 g/dL (31.0-37.0); MCV 88.9 fL (80.0-100.0); Mean Platelet Volume 6.7; Monocytes # (A) 0.2 k/uL (0-1.0); Monocytes % (A) 3 %; Neutrophils % (A) 71 %; Platelet Count 263 k/uL (150-450); RBC 4.25 m/uL (3.80-5.40); RDW 13.9 % (11.5-15.5)
== END | disposition home or self-care (01) ==
LOC: LABPAT 09:42
PROVIDERS: ATTEND Obstetrics & Gynecology
DX: Z01.812 Encounter for preprocedural laboratory examination (principal); N88.3 Incompetence of cervix uteri
CPT/HCPCS: 36415; 85025

== ENCOUNTER 2018-02-28 07:22 | Day surgery (SDC) | payer BC ==
[2018-02-20 15:25] VITALS: BMI 33.0
--- NOTE | 2018-02-27 12:54 | HP ---
HISTORY AND PHYSICAL HISTORY OF PRESENT ILLNESS: The patient is a 27-year-old 5, para 2-0-3-2, admitted at approximately 15+ weeks by good dating parameters for placement of a Ortiz cerclage. She has a history of previous cerclage in both of her previous successful pregnancies. The first one being placed in a semi-emergent fashion at approximately 19-20 weeks. She carried both pregnancies to full-term and ultimately delivered at 39 weeks after the cerclages were removed at approximately 37 weeks. Given her previous history and successful pregnancies, she has requested placement of another, so the diagnosis of cervical competence is somewhat in question. PAST MEDICAL HISTORY: Significant for a history of a 16-17 week demise with chorioamnionitis. PAST SURGICAL HISTORY: Significant for cerclage placement in 2 previous occasions. She additionally had D and C on two separate occasions. She additionally had her tonsils and adenoids removed as a child. There were no anesthetic concerns. OBSTETRICAL HISTORY: 5, para 2-0-3-2 with a roughly 16 week demise and 2 early miscarriages, 1 of which required D and C. Current statistics are listed above. She has had no complications to this point. EDC of 08/16/2018 was established by 6 week ultrasound. Laboratory workup demonstrates a blood type of A positive with a negative antibody screen. The remainder of the laboratory workup was within normal limits. Early diabetic screen is within normal limits. 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 FAMILY HISTORY: Noncontributory. SOCIAL HISTORY: The patient is and is a nonsmoker. She denies any alcohol or any other social concerns. CURRENT MEDICATIONS: Include vitamins daily. ALLERGIES: No known drug allergies. REVIEW OF SYSTEMS: Confined to history of present illness. PHYSICAL EXAMINATION: Vital signs are stable and the patient is afebrile. In general, this is a well- developed, well-nourished, female in no acute distress. Her heart has a regular rhythm and rate without murmur. Her lungs are clear to auscultation bilaterally in all iqbal. Her abdomen is nondistended, has normoactive bowel sounds, soft, nontender, and without any palpable masses. Aside from the uterine fundus, which is consistent with approximately 16 week size. The fundus is soft and nontender. Her extremities are without any cyanosis, clubbing, or edema and are nontender to palpation bilaterally. Pelvic examination is deferred to the operating room. ASSESSMENT AND PLAN: A 15+ weeks' intrauterine , history of possible cervical incompetence: The patient is admitted for placement of Ortiz cerclage. The risks and complications of the procedure have been thoroughly discussed as well as alternatives. These risks include the possibility of artificial rupture of membranes and subsequent loss as well as loss on its own. We also discussed infection, bleeding, and possible transfusion. She has understood all these risks and has agreed to proceed. We are scheduled for placement of a Ortiz cerclage on the morning of February 28, 2018. MMODL / IJN: [id number] /
[~2018-02-28 07:22] MED LIST: DEXAMETHASONE SOD PHOSPHATE 10 MG/ML 1 ML VIAL IV ONE; HYDROmorphone 0.5 MG/0.5 ML SYRINGE IVP PRN; LACTATED RINGERS 1,000 ML IV SCH; MIDAZOLAM (PF) 2 MG/2 ML VIAL IV PRN; ONDANSETRON 4 MG/2 ML VIAL IVP ONE; Pre Op ABX Message 1 EACH MISC MISCELLANE ONE; SCOPOLAMINE 1.5MG/72HR PATCH TRANSDERM ONE
[2018-02-28 07:40] VITALS: RESP 16; TEMP 98.6
[2018-02-28] MEDS ORDERED: KETAMINE 10 MG/ML 20 ML VIAL ONE (08:24)
[2018-02-28] MEDS ORDERED: PHENYLEPHRINE-0.9% NACL SYG 1 MG/10 ML SYRINGE ONE (08:24)
[2018-02-28] MEDS ORDERED: METOCLOPRAMIDE 5 MG/ML 2 ML VIAL IVP PRN (09:04)
[2018-02-28] MEDS ORDERED: ONDANSETRON 4 MG/2 ML VIAL IVP PRN (09:04)
[2018-02-28] MEDS ORDERED: diphenhydrAMINE 50 MG/ML 1 ML VIAL IVP PRN (09:04)
[2018-02-28] MEDS ORDERED: SIMETHICONE 80 MG CHEWABLE PO PRN (09:04)
[2018-02-28] MEDS ORDERED: Acetaminophen-Codeine 300-30mg TAB PO PRN ×2 (09:04)
[2018-02-28] MEDS ORDERED: LACTATED RINGERS 1,000 ML IV SCH (09:15)
--- NOTE | 2018-02-28 09:42 | P.OP ---
Date of Procedure: 02/28/18 Preoperative Diagnosis: #1. 15+ weeks intrauterine #2. History of cervical incompetence Postoperative Diagnosis: Same Procedure(s) Performed: #1. Ortiz cervical cerclage Anesthesia: spinal Surgeon: Todd Fraga Estimated Blood Loss (ml): 2 IV fluids (ml): 350 Urine output (ml): 10 Pathology: none sent Condition: stable Disposition: PACU Operative Findings: Historically, the patient has had 2 previous cervical cerclages with 2 previous successful pregnancies delivered at full-term. As result, she had requested placement of cerclage for this though the diagnosis of cervical incompetence may be in some question. She was taken the operating room after heart tones were.pulled in the 150s in the preoperative area. Her cervix was noted to be fingertip dilated and thick with a roughly 15-16 week sized uterus. The sites of previous placement of cerclage were noted at 12, 9, 6, and 3:00 and were utilized for placement of the cerclage as well. Following the procedure, the cervix felt closed and thick and heart tones were again documented at approximately 140-150 beats per minute. Description of Procedure: The patient was prepped and draped in usual fashion after spinal anesthesia was administered by the anesthesiologist. After ensuring adequate anesthesia, a weighted speculum was placed in the anterior lip of the cervix grasped with an Allis clamp. The sites of previous cerclages were noted high on the cervix at the cervicovaginal junction at 12:00, 9:00, 6:00, and 3:00. The bladder was drained of approximately 10 mL of clear rayshawn urine. A stitch of [place] tape was used and placed in the fashion of a Ortiz cerclage with entry and exit at 12:00 and 9:00, then 9:00 and 6:00, then 6:00 and 3:00, and 3:00 and 12: 00. Multiple knots were placed at 12:00 on the cervix. There was minimal ongoing bleeding from the procedure. Following the procedure, the cervix was felt to be closed and thick. heart tones were obtained in the postoperative area and found to be approximately 148-152, similar to heart tones found in the preoperative phase. There were no complications. All sponge , instrument, and needle counts were correct. Estimated blood loss for the case was 2 mL or less. The patient tolerated the procedure well and proceeded to the recovery room in stable condition.
[2018-02-28 09:59] VITALS: BP 124/72; PULSE 88
[2018-03-01] MEDS ORDERED: ACETAMINOPHEN TAB 325 MG TAB PO PRN (09:05)
== END 2018-02-28 11:25 | disposition home or self-care (01) ==
LOC: OR 07:22
PROVIDERS: ATTEND Obstetrics & Gynecology
DX: O34.32 Maternal care for cervical incompetence, second trimester (principal); Z3A.15 15 weeks gestation of pregnancy; F17.210 Nicotine dependence, cigarettes, uncomplicated
CPT/HCPCS: 86900; 86901; 86850; 59320; J2370

== ENCOUNTER 2018-03-06 17:52 | Outpatient (CLI) | payer BC ==
[2018-03-06 18:29] VITALS: BP 135/76; PULSE 108; RESP 18; TEMP 98
[2018-03-06 18:32] LABS: Appearance,Urine Clear (Clear); Bilirubin,Urine Negative (Negative); Blood,Urine Negative (Negative); Color,Urine Light Yellow; Glucose,Urine (UA) Negative (Negative); Ketones,Urine Negative (Negative); Leukocyte Esterase,Urine Negative (Negative); Nitrite,Urine Negative (Negative); Protein,Urine Negative (Negative); Specific Gravity,Urine 1.003 (1.001-1.035); Urobilinogen,Urine <2.0 mg/dL (<2.0)
--- NOTE | 2018-03-22 11:53 | P.MSEPDOC ---
Presenting Problems - Arrival Data Date of Arrival on Unit: 03/06/18 Time of Arrival on Unit: 18:00 Mode of Transport: Ambulatory - Complaint OB-Reason for Admission/Chief Complaint: Other Comment: pt sent up to l/d per dr moore to be evualted for cramping that pt has had for a couple of days. no vaginal bleeding abd soft FHT 150`S v/s stable cleancatch u/a obtained and sent to lab. pt had a ceglage inserted [address] moore Medical History - Information : 6 Para: 2 Term: 2 : 0 Abortions: Spontaneous or Elective: 3 Number of Living Children: 2 - Gestational Age Gestational Age by JENNIFER (wks/days): 16 Weeks and 5 Days - History Complications: Incompetent Cervix Review of Systems - Review of Systems Constitutional: No problems Breast: No problems ENT: No problems Cardiovascular: No problems Respiratory: No problems Gastrointestinal: No problems Genitourinary: No problems Musculoskeletal: No problems Neurological: No problems Skin: No problems Vital Signs - Temperature Temperature: 98 F Temperature Source: Oral - Pulse Right Brachial Pulse Rate: 108 Pulse Assessment Method: Automatic Cuff - Respirations Respiratory Rate: 18 Oxygen Delivery Method: Room Air - Blood Pressure Right Arm Blood Pressure: 135/76 Blood Pressure Mean: 95 Medical Screen Scoring (Pre) - Cervical Exam Membranes: Intact - Uterine Contractions Frequency: N/A Duration: N/A Intensity: N/A - Maternal Vital Signs Maternal Temperature: N/A Maternal Blood Pressure: N/A Signs of Preeclampsia: Headache = 1 Maternal Respirations: N/A - Pain Assessment Pain Location and Character: Abdomen Pain Scale Used: Numeric (1 - 10) Pain Intensity: 6 Pain Management Goal: 2 Pain Description: Cramping, Tightness Pain Radiation Location: n/a Pain Frequency: Occasional Pain Duration: 10 Pain Duration Units: Minutes Pain Behavior: Vocalization Pain Aggravating Factors: Position Non-Pharmacological Interventions: Position/Reposition, Relaxation Technique - Maternal Trauma Maternal Trauma: N/A - Assessment Baseline FHR: 150 - Total Score Total Score (Pre): 1 Medical Screen Scoring (Post) - Post Treatment Level of Risk Post Treatment Level of Risk: Low (0-5) Physician Notification (Post) - Physician Notified Physician Notified Date: 03/06/18 Physician Notified Time: 19:15 Spoke With: dr moore New Order Received: Yes - Notification Comment Comment: may discharge to home withinstructions Disposition - Disposition OB Disposition: Discharge to home Discharge Date: 03/06/18 Discharge Time: 19:15 I agree with the RN Medical Screening Exam: Yes Risk & Benefit of care provided described in d/c instruction: Yes Diagnosis: RELATED CONDITIONS, UNSPECIFIED, SECOND TRIMESTER
== END 2018-03-06 19:15 | disposition home or self-care (01) ==
LOC: FBPOP 17:52
PROVIDERS: ATTEND Obstetrics & Gynecology
DX: O26.92 Pregnancy related conditions, unspecified, second trimester (principal); Z3A.16 16 weeks gestation of pregnancy
CPT/HCPCS: 81003; 99213

== ENCOUNTER 2018-03-13 04:48 | Emergency (ER) | payer BC, OTHER ==
[2018-03-13] MEDS ORDERED: SODIUM CHLORIDE 0.9% 1,000 ML IV ONE (05:06)
--- NOTE | 2018-03-13 05:15 | ED ---
Female Urogenital HPI - General Source: patient Mode of arrival: ambulatory Limitations: no limitations - History of Present Illness Complaint: vaginal bleeding -: days(s) Severity: mild Quality: cramping Consistency: intermittent Improves with: none Worsens with: none Patient : Yes Number of weeks : 17 - Related Data : 6 Para: 2 A: 3 <Medhat Boles - Last Filed: 03/13/18 05:15> <Michele Stapleton - Last Filed: 03/13/18 08:40> - General Chief complaint: Vaginal Bleeding Stated complaint: cramping, vaginal bleeding, 17 wks pgt Time Seen by Provider: 03/13/18 04:55 - History of Present Illness Initial comments: This patient is a 27-year-old woman who believes that she is about 17 weeks . She states that she is G6, P2. Who sees . In fact she states that he had performed a cerclage on the fourth of this month. The patient states that she has been having some reddish blood when she wipes after using the bathroom for little over 24 hours now. There has also been some lower abdominal cramping. No upper abdominal pain. No leg edema or pain. No change in urination or bowel movements. No vomiting. (Medhat Boles) - Related Data Home Medications Medication Instructions Recorded Confirmed [id number]-[id number] Acid 1 cap PO HS 12/16/17 03/13/18 [-U Capsule (formulary)] Allergies Allergy/AdvReac Type Severity Reaction Status Date / Time No Known Allergies Allergy Verified 03/13/18 06:51 Review of Systems ROS Other: All systems not noted in ROS Statement are negative. Constitutional: Denies: fever, chills Respiratory: Denies: cough, dyspnea Cardiovascular: Denies: chest pain, orthopnea, edema, syncope Gastrointestinal: Denies: abdominal pain, nausea, vomiting, diarrhea, constipation Genitourinary: Reports: as per HPI. Denies: dysuria, frequency, hematuria, discharge Musculoskeletal: Denies: back pain Skin: Denies: rash Neurological: Denies: headache, weakness <Medhat Boles - Last Filed: 03/13/18 05:15> ROS Other: All systems not noted in ROS Statement are negative. <Michele Stapleton - Last Filed: 03/13/18 08:40> ROS Statement: Those systems with pertinent positive or pertinent negative responses have been documented in the HPI. Past Medical History Past Medical History: No Reported History Additional Past Medical History / Comment(s): incompetent cervix History of Any Multi-Drug Resistant Organisms: MRSA Date of last positivie culture/infection: 09/21/2008 MDRO Source:: Urine Past Surgical History: Adenoidectomy, Tonsillectomy Additional Past Surgical History / Comment(s): D&C Past Anesthesia/Blood Transfusion Reactions: No Reported Reaction Additional Past Anesthesia/Blood Transfusion Reaction / Comment(s): no hx blood transfusion Past Psychological History: Anxiety Smoking Status: Former smoker Past Alcohol Use History: None Reported Past Drug Use History: None Reported - Past Family History Mother Family Medical History: No Reported History <ElviMedhat - Last Filed: 03/13/18 05:15> General Exam Limitations: no limitations General appearance: alert, in no apparent distress Head exam: Present: atraumatic, normocephalic Eye exam: Present: normal appearance. Absent: scleral icterus, conjunctival injection Neck exam: Present: normal inspection Respiratory exam: Present: normal lung sounds bilaterally. Absent: respiratory distress, wheezes, rales, rhonchi, stridor Cardiovascular Exam: Present: normal rhythm, tachycardia, normal heart sounds. Absent: systolic murmur, diastolic murmur, rubs, gallop GI/Abdominal exam: Present: soft, normal bowel sounds. Absent: distended, tenderness, guarding, rebound, pulsatile mass, hernia Extremities exam: Present: normal inspection, normal capillary refill. Absent: pedal edema, calf tenderness Back exam: Present: normal inspection. Absent: CVA tenderness (R), CVA tenderness (L) Neurological exam: Present: alert Skin exam: Present: warm, dry, intact, normal color. Absent: rash <ElviMedhat - Last Filed: 03/13/18 05:15> Vital Signs 03/13/18 03/13/18 03/13/18 04:50 05:03 05:10 Temperature 97.7 F 98.7 F Pulse Rate 131 H 103 H Respiratory 20 16 Rate Blood Pressure 115/80 131/86 O2 Sat by Pulse 100 98 100 Oximetry 03/13/18 06:49 Temperature Pulse Rate 94 Respiratory 14 Rate Blood Pressure 112/66 O2 Sat by Pulse 100 Oximetry Medical Decision Making <Medhat Boles - Last Filed: 03/13/18 05:15> - Lab Data Result diagrams: 03/13/18 05:12 03/13/18 05:12 <Michele Stapleton - Last Filed: 03/13/18 08:40> - Medical Decision Making 27-year-old female at 17 weeks gestation presenting with vaginal spotting and lower abdominal cramping. Patient's care was signed out at shift change awaiting ultrasound. I did review lab results which revealed a positive blood and hemoglobin 12.6 which is stable. Other laboratory studies are unremarkable. Ultrasound is performed in the emergency department, shows 1.9 cm subchorionic hemorrhage which is small. She has a area of his possible separation or non-fusion of the cornea on an amiodarone measuring 5.7 cm. There is single live uterine with heart tones at 159. I did discuss this case with the patient's senior examiner Dr. Fraga, he is familiar with this patient, he states she's had similar course with her previous pregnancies. At this time patient is stable for outpatient follow-up. ( Michele Stapleton) - Lab Data Lab Results 03/13/18 03/13/18 03/13/18 Range/Units 05:12 05:12 05:12 WBC 9.5 (3.8-10.6) k/uL RBC 4.15 (3.80-5.40) m/uL Hgb 12.6 (11.4-16.0) gm/dL Hct 37.1 (34.0-46.0) % MCV 89.3 (80.0-100.0) fL MCH 30.3 (25.0-35.0) pg MCHC 34.0 (31.0-37.0) g/dL RDW 14.0 (11.5-15.5) % Plt Count 272 (150-450) k/uL Neutrophils % 62 % Lymphocytes % 29 % Monocytes % 4 % Eosinophils % 2 % Basophils % 1 % Neutrophils # 5.9 (1.3-7.7) k/uL Lymphocytes # 2.8 (1.0-4.8) k/uL Monocytes # 0.4 (0-1.0) k/uL Eosinophils # 0.2 (0-0.7) k/uL Basophils # 0.1 (0-0.2) k/uL Sodium 138 (137-145) mmol/L Potassium 4.0 (3.5-5.1) mmol/L Chloride 107 (98-107) mmol/L Carbon Dioxide 25 (22-30) mmol/L Anion Gap 6 mmol/L BUN 7 (7-17) mg/dL Creatinine 0.51 L (0.52-1.04) mg/dL Est GFR (CKD-EPI)AfAm >90 (>60 ml/min/1.73 sqM) Est GFR (CKD-EPI)NonAf >90 (>60 ml/min/1.73 sqM) Glucose 96 (74-99) mg/dL Calcium 9.5 (8.4-10.2) mg/dL Total Bilirubin 0.6 (0.2-1.3) mg/dL AST 32 (14-36) U/L ALT 39 (9-52) U/L Alkaline Phosphatase 81 (38-126) U/L Total Protein 7.3 (6.3-8.2) g/dL Albumin 3.8 (3.5-5.0) g/dL HCG, Quant 40849.6 mIU/mL Urine Color Urine Appearance (Clear) Urine pH (5.0-8.0) Ur Specific Zap (1.001-1.035) Urine Protein (Negative) Urine Glucose (UA) (Negative) Urine Ketones (Negative) Urine Blood (Negative) Urine Nitrite (Negative) Urine Bilirubin (Negative) Urine Urobilinogen (<2.0) mg/dL Ur Leukocyte Esterase (Negative) Blood Type A Positive Blood Type Recheck No 03/13/18 Range/Units 06:15 WBC (3.8-10.6) k/uL RBC (3.80-5.40) m/uL Hgb (11.4-16.0) gm/dL Hct (34.0-46.0) % MCV (80.0-100.0) fL MCH (25.0-35.0) pg MCHC (31.0-37.0) g/dL RDW (11.5-15.5) % Plt Count (150-450) k/uL Neutrophils % % Lymphocytes % % Monocytes % % Eosinophils % % Basophils % % Neutrophils # (1.3-7.7) k/uL Lymphocytes # (1.0-4.8) k/uL Monocytes # (0-1.0) k/uL Eosinophils # (0-0.7) k/uL Basophils # (0-0.2) k/uL Sodium (137-145) mmol/L Potassium (3.5-5.1) mmol/L Chloride (98-107) mmol/L Carbon Dioxide (22-30) mmol/L Anion Gap mmol/L BUN (7-17) mg/dL Creatinine (0.52-1.04) mg/dL Est GFR (CKD-EPI)AfAm (>60 ml/min/1.73 sqM) Est GFR (CKD-EPI)NonAf (>60 ml/min/1.73 sqM) Glucose (74-99) mg/dL Calcium (8.4-10.2) mg/dL Total Bilirubin (0.2-1.3) mg/dL AST (14-36) U/L ALT (9-52) U/L Alkaline Phosphatase (38-126) U/L Total Protein (6.3-8.2) g/dL Albumin (3.5-5.0) g/dL HCG, Quant mIU/mL Urine Color Yellow Urine Appearance Clear (Clear) Urine pH 6.5 (5.0-8.0) Ur Specific Zap 1.004 (1.001-1.035) Urine Protein Negative (Negative) Urine Glucose (UA) Negative (Negative) Urine Ketones Negative (Negative) Urine Blood Negative (Negative) Urine Nitrite Negative (Negative) Urine Bilirubin Negative (Negative) Urine Urobilinogen <2.0 (<2.0) mg/dL Ur Leukocyte Esterase Negative (Negative) Blood Type Blood Type Recheck Disposition <Medhat Boles - Last Filed: 03/13/18 05:15> Is patient prescribed a controlled substance at d/c from ED?: No Time of Disposition: 08:40 <Michele Stapleton - Last Filed: 03/13/18 08:40> Clinical Impression: Subchorionic bleed, Hx of cervical cerclage, currently , Cervical incompetence Disposition: HOME SELF-CARE Condition: Fair Instructions: Incompetent Cervix (ED), Subchorionic Hemorrhage (ED) Referrals: Marcia Donnelly MD [Primary Care Provider] - 1-2 days Todd Fraga MD [STAFF PHYSICIAN] - 1-2 days
[2018-03-13 05:26] LABS: Basophils # (A) 0.1 k/uL (0-0.2); Basophils % (A) 1 %; Eosinophils # (A) 0.2 k/uL (0-0.7); Eosinophils % (A) 2 %; HCT 37.1 % (34.0-46.0); HGB 12.6 gm/dL (11.4-16.0); Lymphocytes # (A) 2.8 k/uL (1.0-4.8); Lymphocytes % (A) 29 %; MCH 30.3 pg (25.0-35.0); MCV 89.3 fL (80.0-100.0); Mean Platelet Volume 6.8; Monocytes # (A) 0.4 k/uL (0-1.0); Monocytes % (A) 4 %; Neutrophils # (A) 5.9 k/uL (1.3-7.7); Neutrophils % (A) 62 %; Platelet Count 272 k/uL (150-450); RBC 4.15 m/uL (3.80-5.40); WBC 9.5 k/uL (3.8-10.6)
[2018-03-13 05:37] LABS: ALT 39 U/L (9-52); AST 32 U/L (14-36); Albumin 3.8 g/dL (3.5-5.0); Alkaline Phosphatase 81 U/L (38-126); Anion Gap 6 mmol/L; Blood Urea Nitrogen 7 mg/dL (7-17); Calcium 9.5 mg/dL (8.4-10.2); Carbon Dioxide 25 mmol/L (22-30); Chloride 107 mmol/L (98-107); Glucose 96 mg/dL (74-99); Sodium 138 mmol/L (137-145); Total Bilirubin 0.6 mg/dL (0.2-1.3); Total Protein 7.3 g/dL (6.3-8.2)
[2018-03-13] MEDS ORDERED: ACETAMINOPHEN TAB 325 MG TAB PO STA (06:11)
[2018-03-13 06:26] LABS: Appearance,Urine Clear (Clear); Bilirubin,Urine Negative (Negative); Blood,Urine Negative (Negative); Color,Urine Yellow; Glucose,Urine (UA) Negative (Negative); Ketones,Urine Negative (Negative); Leukocyte Esterase,Urine Negative (Negative); Nitrite,Urine Negative (Negative); PH, Urine 6.5 (5.0-8.0); Protein,Urine Negative (Negative); Specific Gravity,Urine 1.004 (1.001-1.035); Urobilinogen,Urine <2.0 mg/dL (<2.0)
[2018-03-13 06:28] LABS: HCG,Quantitative Serum 69931.6 mIU/mL
--- NOTE | 2018-03-13 08:18 | US ---
EXAMINATION TYPE: US OB >= 14 wk fetus DATE OF EXAM: 03/13/2018 COMPARISON: CLINICAL HISTORY: Pain/bleedingSpotting TECHNIQUE: Transabdominal (TA) GESTATIONAL AGE / DATING Physician Established: (17 weeks/5 days) EDC: 08/16/2018 Dates by Current Scan: (18 weeks/1 days) EDC: 08/13/2018 SURVEY IUP: Single PLACENTA: Anterior PREVIA: Placenta is questionably low lying with the distal tip between 2 and 2.5 cm from the interna l cervical os on a single view only, however this does not persist throughout the exam. DANII: 16.2 cm Normal CERVICAL LENGTH (transabdominal: norm > 3.0cm): 3.3 cm BIOMETRY PRESENTATION: Vertex BPD: 4.1 cm 18 weeks / 3 days HC: 14.9 cm 18 weeks / 0 days AC: 12.4 cm 18 weeks / 0 days FL: 2.8 cm 18 weeks / 3 days ESTIMATED WEIGHT IN GRAMS: 229.2 grams ESTIMATED WEIGHT IN LBS/OZ: 0 lbs. 8 oz. WEIGHT PERCENTAGE BASED ON ESTABLISHED DATES: 76.1% HC/AC: 1.2 Normal FL/AC: 22.1 HEART RATE: 159 bpm RHYTHM: Normal Single live IUP measuring 18 weeks 1 day. Bleed seen at tip of placenta - 1.9 x 0.7 x 0.5 cm. Hypoe choic elongated area seen at mid placenta with separation of the chorion and amnion measuring a dista nce of 5.7 x 2.7 x 0.5 cm. Small amount of free fluid seen in posterior cul de sac. IMPRESSION: 1. There is an elongated area of hypoechoic echogenicity between the chorion and amnion that should b e fused by 16 weeks representing nonfusion or chorioamnionic separation. This is limited and partial measuring a distance of 5.7 cm. 2. Single live intrauterine with a sonographic age of 18 weeks and 1 day and estimated date of delivery of 08/13/2018, concordant with menstrual age. 3. Persistent small 1.9 cm subchorionic hemorrhage.
[2018-03-13 08:53] VITALS: BP 101/54; PULSE 105; RESP 18; TEMP 97.9
== END 2018-03-13 08:51 | disposition home or self-care (01) ==
LOC: EC 04:48
DX: O20.8 Other hemorrhage in early pregnancy (principal); O65.5 Obstructed labor due to abnormality of maternal pelvic organs; O34.32 Maternal care for cervical incompetence, second trimester; Z98.890 Other specified postprocedural states; Z86.14 Personal history of Methicillin resistant Staphylococcus aureus infection; Z87.891 Personal history of nicotine dependence; Z3A.18 18 weeks gestation of pregnancy
CPT/HCPCS: 36415; 76805; 80053; 81003; 84702; 85025; 86900; 86901; 96360; 96361; 99284

== ENCOUNTER 2018-04-05 14:17 | Outpatient (CLI) | payer BC, OTHER ==
[2018-04-05 14:49] LABS: Appearance,Urine Clear (Clear); Bilirubin,Urine Negative (Negative); Blood,Urine Negative (Negative); Color,Urine Yellow; Glucose,Urine (UA) Negative (Negative); Ketones,Urine 1+ (Negative); Leukocyte Esterase,Urine Negative (Negative); Nitrite,Urine Negative (Negative); PH, Urine 6.5 (5.0-8.0); Protein,Urine Trace (Negative); Specific Gravity,Urine 1.018 (1.001-1.035)
[2018-04-05 14:53] VITALS: BP 121/70; RESP 17; TEMP 98
--- NOTE | 2018-04-05 15:07 | US ---
EXAMINATION TYPE: US OB transvaginal DATE OF EXAM: 04/05/2018 COMPARISON: NONE CLINICAL HISTORY: cervical length. cramping and tightness EXAM PERFORMED: TV HEART RATE: 153 bpm RHYTHM: normal Cervical length = 3.6cm. Cervical os appears closed on the submitted images. IMPRESSION: Single live intrauterine with a heart rate of 150 bpm. Cervical length is withi n normal limits measuring 3.6 cm.
[2018-04-05] MEDS: LACTATED RINGERS 1,000 ML IV SCH ×2 (15:25→16:52)
[2018-04-05 18:04] VITALS: PULSE 98
--- NOTE | 2018-04-30 10:57 | P.MSEPDOC ---
Presenting Problems - Arrival Data Date of Arrival on Unit: 04/05/18 Time of Arrival on Unit: 14:17 Mode of Transport: Portable - Complaint OB-Reason for Admission/Chief Complaint: Other Comment: pt here with c/o cramping, vaginal pressure and "pulling" near her cerclage, pt. states cerclage was placed in February for a hx of labor with her first. , she has had a cerclage with each , pt denies lof/vb, reports being. on bedrest at present time, spoke with dr hanson, orders given for a u/a, transvag u/s,. iv start, and cervical exam Medical History - Information : 6 Para: 2 Abortions: Spontaneous or Elective: 3 Number of Living Children: 2 - Gestational Age Gestational Age by JENNIFER (wks/days): 21 Weeks and 0 Days - History Complications: Incompetent Cervix, Other Comment: cerclage placed in february Review of Systems - Review of Systems Constitutional: No problems Breast: No problems ENT: No problems Cardiovascular: No problems Respiratory: No problems Gastrointestinal: No problems Genitourinary: No problems Musculoskeletal: No problems Neurological: No problems Skin: No problems Vital Signs - Temperature Temperature: 98.0 F Temperature Source: Temporal Artery Scan - Pulse Right Brachial Pulse Rate: 98 Pulse Assessment Method: Pulse Oximetry - Respirations Respiratory Rate: 17 Oxygen Delivery Method: Room Air - Blood Pressure Right Arm Blood Pressure: 121/70 Blood Pressure Mean: 87 Blood Pressure Source: Automatic Cuff Medical Screen Scoring (Pre) - Cervical Exam Membranes: Intact - Uterine Contractions Frequency: N/A Duration: N/A Intensity: N/A - Maternal Vital Signs Maternal Temperature: N/A Maternal Blood Pressure: N/A Signs of Preeclampsia: N/A Maternal Respirations: N/A - Pain Assessment Pain Location and Character: Abdomen Pain Scale Used: Numeric (1 - 10) Pain Intensity: 6 Pain Description: *Acute, Cramping Pain Frequency: Frequent Pain Duration: 1 Pain Duration Units: Days Pain Behavior: None Exhibited Pain Aggravating Factors: None - Maternal Trauma Maternal Trauma: N/A - Assessment Baseline FHR: 155 Position: N/A Station: N/A - Total Score Total Score (Pre): 0 - Level of Risk Level of Risk: Low (0-5) Physician Notification (Pre) - Physician Notified Physician Notified Date: 04/05/18 Physician Notified Time: 14:23 Physician/Practitioner Notifed:: Dr Hanson Spoke With: Dr Valentin Borges Order Received: Yes Medical Screen Scoring (Post) - Cervical Exam Dilation: 0 cm = 0 Membranes: Intact - Uterine Contractions Frequency: N/A Duration: N/A Intensity: N/A - Maternal Vital Signs Maternal Temperature: N/A Signs of Preeclampsia: N/A Maternal Respirations: N/A - Maternal Trauma Maternal Trauma: N/A - Total Score Total Score (Post): 0 - Post Treatment Level of Risk Post Treatment Level of Risk: Low (0-5) Physician Notification (Post) - Physician Notified Physician Notified Date: 04/05/18 Physician Notified Time: 16:20 Physician/Practitioner Notified:: Dr Hanson Spoke With: Dr Valentin Borges Order Received: Yes (pt ok to dc home after 2nd liter of LR) - Notification Comment Comment: pt dcd home with report of decreased cramping sensation and pressure in the vaginal area, pt has an appt on 04/10, reminded of importance of attending appt Disposition - Disposition OB Disposition: Discharge to home, Written follow up instructions reviewed Discharge Date: 04/05/18 Discharge Time: 18:00 I agree with the RN Medical Screening Exam: Yes Risk & Benefit of care provided described in d/c instruction: Yes Diagnosis: FALSE LABOR BEFORE 37 COMPLETED WEEKS OF GEST, THIRD TRI
== END 2018-04-05 18:00 | disposition home or self-care (01) ==
LOC: FBPOP 14:17
PROVIDERS: ATTEND Obstetrics & Gynecology Obstetrics
DX: O47.02 False labor before 37 completed weeks of gestation, second trimester (principal); Z3A.21 21 weeks gestation of pregnancy
CPT/HCPCS: 76817; 81003; 96360; 96361; 99214

== ENCOUNTER 2018-04-22 10:22 | Outpatient (CLI) | payer BC, OTHER ==
[2018-04-22 11:35] LABS: Amorphous Sediment,Urine Moderate /hpf; Appearance,Urine Cloudy (Clear); Bilirubin,Urine Negative (Negative); Blood,Urine Negative (Negative); Color,Urine Yellow; Glucose,Urine (UA) Negative (Negative); Ketones,Urine Negative (Negative); Leukocyte Esterase,Urine Negative (Negative); Mucus,Urine Rare /hpf; Nitrite,Urine Negative (Negative); PH, Urine 7.5 (5.0-8.0); Protein,Urine Trace (Negative); RBC,Urine 1 /hpf (0-5); Specific Gravity,Urine 1.016 (1.001-1.035); Squamous Epithelial Cell,Urine <1 /hpf (0-4); Urobilinogen,Urine <2.0 mg/dL (<2.0); WBC,Urine 1 /hpf (0-5)
[2018-04-22 11:56] VITALS: BP 141/77; PULSE 117; RESP 18; TEMP 96.9
--- NOTE | 2018-04-26 11:50 | P.MSEPDOC ---
Presenting Problems - Arrival Data Date of Arrival on Unit: 04/22/18 Time of Arrival on Unit: 10:22 Mode of Transport: Ambulatory - Complaint OB-Reason for Admission/Chief Complaint: Rule Out PROM Medical History - Information : 6 Para: 2 Term: 2 : 0 Abortions: Spontaneous or Elective: 3 Number of Living Children: 2 - Gestational Age Gestational Age by JENNIFER (wks/days): 23 Weeks and 3 Days - History Comment: pt has cerclage Review of Systems - Review of Systems Constitutional: No problems Breast: No problems ENT: No problems Cardiovascular: No problems Respiratory: No problems Gastrointestinal: No problems Genitourinary: No problems Musculoskeletal: No problems Neurological: No problems Skin: No problems Vital Signs - Temperature Temperature: 96.9 F Temperature Source: Temporal Artery Scan - Pulse Right Brachial Pulse Rate: 117 Pulse Assessment Method: Automatic Cuff - Respirations Respiratory Rate: 18 Oxygen Delivery Method: Room Air O2 Sat by Pulse Oximetry: 100 - Blood Pressure Right Arm Blood Pressure: 141/77 Blood Pressure Mean: 98 Blood Pressure Source: Automatic Cuff Medical Screen Scoring (Pre) - Cervical Exam Dilation: 1-3 cm = 1 Effacement: Exam Deferred Membranes: Intact - Uterine Contractions Frequency: N/A Duration: N/A Intensity: N/A - Maternal Vital Signs Maternal Temperature: N/A Maternal Blood Pressure: Systolic >139 = 2 Signs of Preeclampsia: N/A Maternal Respirations: N/A - Pain Assessment Pain Location and Character: Abdomen Pain Scale Used: Numeric (1 - 10) Pain Description: *Acute, Tightness Pain Radiation Location: none Pain Frequency: Intermittent Pain Behavior: Vocalization - Assessment Baseline FHR: 145 Heart Rate - NICHD Category: Category I (Normal) = 0 NST: Reactive Position: N/A Station: N/A - Total Score Total Score (Pre): 3 - Level of Risk Level of Risk: Low (0-5) Physician Notification (Pre) - Physician Notified Physician Notified Date: 04/22/18 Physician Notified Time: 11:07 Physician/Practitioner Notifed:: Dr. Frgaa Spoke With: Dr. Fraga New Order Received: Yes - Notification Comment Comment: obtain UA, if WNL, discharge pt home, Disposition - Disposition OB Disposition: Triage, Discharge to home, Written follow up instructions reviewed Discharge Date: 04/22/18 Discharge Time: 11:49 I agree with the RN Medical Screening Exam: Yes Risk & Benefit of care provided described in d/c instruction: Yes Diagnosis: RELATED CONDITIONS, UNSPECIFIED, SECOND TRIMESTER
== END 2018-04-22 11:50 | disposition home or self-care (01) ==
LOC: FBPOP 10:22
PROVIDERS: ATTEND Obstetrics & Gynecology
DX: O26.92 Pregnancy related conditions, unspecified, second trimester (principal); Z3A.23 23 weeks gestation of pregnancy
CPT/HCPCS: 81001; 84112; 99213

== ENCOUNTER 2018-06-06 12:36 | Outpatient (CLI) | payer BC, OTHER ==
[2018-06-06 13:54] VITALS: RESP 16; TEMP 97.9
[2018-06-06] MEDS ORDERED: DEXTROSE 5%-LACTATED RINGERS 1,000 ML IV ONE (14:00)
[2018-06-06 14:18] LABS: Appearance,Urine Clear (Clear); Bilirubin,Urine Negative (Negative); Blood,Urine Negative (Negative); Color,Urine Yellow; Glucose,Urine (UA) Negative (Negative); Ketones,Urine Negative (Negative); Leukocyte Esterase,Urine Negative (Negative); Nitrite,Urine Negative (Negative); PH, Urine 7.5 (5.0-8.0); Protein,Urine Trace (Negative); Specific Gravity,Urine 1.017 (1.001-1.035); Urobilinogen,Urine <2.0 mg/dL (<2.0)
[2018-06-06 14:18] LABS: Basophils # (A) 0.1 k/uL (0-0.2); Basophils % (A) 1 %; Eosinophils # (A) 0.1 k/uL (0-0.7); Eosinophils % (A) 1 %; HCT 35.4 % (34.0-46.0); HGB 11.6 gm/dL (11.4-16.0); Lymphocytes % (A) 21 %; MCH 29.2 pg (25.0-35.0); MCHC 32.7 g/dL (31.0-37.0); MCV 89.3 fL (80.0-100.0); Mean Platelet Volume 6.9; Monocytes # (A) 0.4 k/uL (0-1.0); Monocytes % (A) 4 %; Neutrophils # (A) 6.9 k/uL (1.3-7.7); Neutrophils % (A) 72 %; Platelet Count 275 k/uL (150-450); RBC 3.97 m/uL (3.80-5.40); WBC 9.6 k/uL (3.8-10.6)
[2018-06-06] MEDS ORDERED: BETAMET ACET-BETAMETH SOD PHOS 6 MG/ML VIAL IM SCH (15:00)
[2018-06-06] MEDS ORDERED: LACTATED RINGERS 1,000 ML IV SCH (15:30)
[2018-06-06 17:00] VITALS: BP 127/70; PULSE 104
[2018-06-06 17:00] LABS: T4, Free (Free Thyroxine) 0.8 ng/dL (0.78-2.19)
--- NOTE | 2018-06-23 09:22 | P.MSEPDOC ---
Presenting Problems - Arrival Data Date of Arrival on Unit: 06/06/18 Time of Arrival on Unit: 12:36 Mode of Transport: Ambulatory - Complaint OB-Reason for Admission/Chief Complaint: Visual Disturbances, Pain, Dizziness Comment: dizzy, light headed, and cramping. Medical History - Information : 6 Para: 2 Term: 2 : 0 Abortions: Spontaneous or Elective: 3 Number of Living Children: 2 - Gestational Age Gestational Age by JENNIFER (wks/days): 29 Weeks and 6 Days Review of Systems - Review of Systems Constitutional: No problems Breast: No problems ENT: No problems Cardiovascular: No problems Respiratory: No problems Gastrointestinal: No problems Genitourinary: No problems Musculoskeletal: No problems Neurological: No problems Skin: No problems Vital Signs - Temperature Temperature: 97.9 F Temperature Source: Temporal Artery Scan - Pulse Left Pulse Rate: 104 Pulse Assessment Method: Pulse Oximetry - Respirations Respiratory Rate: 16 Oxygen Delivery Method: Room Air O2 Sat by Pulse Oximetry: 100 - Blood Pressure Left Arm Blood Pressure: 127/70 Blood Pressure Mean: 89 Blood Pressure Source: Automatic Cuff Medical Screen Scoring (Pre) - Cervical Exam Dilation: Exam Deferred Effacement: Exam Deferred Membranes: Intact - Uterine Contractions Frequency: N/A Duration: N/A Intensity: N/A - Maternal Vital Signs Maternal Temperature: N/A Maternal Blood Pressure: N/A Maternal Respirations: N/A - Pain Assessment Pain Location and Character: Abdomen, Pelvic Pain Scale Used: Numeric (1 - 10) Pain Intensity: 5 Pain Management Goal: 0 Pain Description: *Acute, Cramping, Pressure Pain Frequency: Intermittent Pain Duration Units: Minutes Pain Behavior: Vocalization - Maternal Trauma Maternal Trauma: N/A - Assessment Baseline FHR: 150 Heart Rate - NICHD Category: Category I (Normal) = 0 NST: Non-reactive = 3 Position: N/A Station: N/A - Total Score Total Score (Pre): 3 - Level of Risk Level of Risk: N/A Physician Notification (Pre) - Physician Notified Physician Notified Date: 06/06/18 Physician Notified Time: 13:41 Physician/Practitioner Notifed:: Spoke With: Dr. Mora New Order Received: Yes (cbc,UA, cervical exam, IV fluids.) Medical Screen Scoring (Post) - Cervical Exam Dilation: 1-3 cm = 1 Effacement: Exam Deferred Membranes: Intact - Uterine Contractions Frequency: N/A Duration: N/A Intensity: N/A - Maternal Vital Signs Maternal Temperature: N/A Maternal Blood Pressure: N/A Signs of Preeclampsia: N/A Maternal Respirations: N/A - Pain Assessment Pain Location and Character: Pelvic Pain Scale Used: Numeric (1 - 10) Pain Intensity: 5 Pain Management Goal: 0 Pain Description: *Acute, Cramping Pain Frequency: Intermittent Pain Duration Units: Minutes Pain Behavior: Vocalization - Maternal Trauma Maternal Trauma: N/A - Assessment Heart Rate: 145 Heart Rate - NICHD Category: Category I (Normal) = 0 NST: Reactive Position: N/A Station: N/A - Total Score Total Score (Post): 1 - Post Treatment Level of Risk Post Treatment Level of Risk: Low (0-5) Physician Notification (Post) - Physician Notified Physician Notified Date: 06/06/18 Physician Notified Time: 16:18 Physician/Practitioner Notified:: Dr. Mora Spoke With: Dr. Mora New Order Received: Yes - Notification Comment Comment: Orders for discharge home with follow up instructions. Pt to return to triage tomorrow at 1500 for second dose of celestone. Pt to call office on Saturday to make follow up appointment for sometime this week with Dr. Fraga. Pt encouraged to return if symptoms continue or worsen. Pt verbalizes understanding. Denies light headed, dizzy, or RUBIO. Pt more relaxed at this time. Cramping remains the same as when arrived. Disposition - Disposition OB Disposition: Physician follow up in office, Discharge to home Discharge Date: 06/06/18 Discharge Time: 16:33 I agree with the RN Medical Screening Exam: Yes Risk & Benefit of care provided described in d/c instruction: Yes Diagnosis: FALSE LABOR BEFORE 37 COMPLETED WEEKS OF GEST, SECOND TRI
== END 2018-06-06 16:33 | disposition home or self-care (01) ==
LOC: FBPOP 12:36
PROVIDERS: ATTEND Obstetrics & Gynecology
DX: O47.02 False labor before 37 completed weeks of gestation, second trimester (principal); Z3A.29 29 weeks gestation of pregnancy
CPT/HCPCS: 59025; 99214; 96360; 96361; 96372; 84439; 84443; 85025; 81003; J0702

== ENCOUNTER 2018-06-07 15:14 | Outpatient (CLI) | payer BC, OTHER ==
[2018-06-07] MEDS ORDERED: BETAMET ACET-BETAMETH SOD PHOS 6 MG/ML VIAL IM SCH (15:26)
[2018-06-07 17:12] VITALS: BP 133/70; RESP 18; TEMP 97.9
[2018-06-07 17:18] VITALS: PULSE 111
--- NOTE | 2018-06-23 09:23 | P.MSEPDOC ---
Presenting Problems - Arrival Data Date of Arrival on Unit: 06/07/18 Time of Arrival on Unit: 15:20 Mode of Transport: Ambulatory - Complaint OB-Reason for Admission/Chief Complaint: NST, Celestone Injection Medical History - Information : 6 Para: 2 Term: 2 : 0 Abortions: Spontaneous or Elective: 3 Number of Living Children: 2 - Gestational Age Gestational Age by JENNIFER (wks/days): 30 Weeks and 0 Days - History Comment: prior contx with this preg. per pt statement. celestone 12 mg second injection today. first inj yesterday Review of Systems - Review of Systems Constitutional: No problems Breast: No problems ENT: No problems Cardiovascular: No problems Respiratory: No problems Gastrointestinal: No problems Genitourinary: No problems Musculoskeletal: No problems Neurological: No problems Skin: No problems Vital Signs - Temperature Temperature: 97.9 F Temperature Source: Oral - Pulse Right Brachial Pulse Rate: 111 Pulse Assessment Method: Automatic Cuff - Respirations Respiratory Rate: 18 Oxygen Delivery Method: Room Air - Blood Pressure Right Arm Blood Pressure: 133/70 Blood Pressure Mean: 91 Blood Pressure Source: Automatic Cuff Medical Screen Scoring (Pre) - Cervical Exam Dilation: Exam Deferred Effacement: Exam Deferred Membranes: Intact - Uterine Contractions Frequency: N/A Duration: N/A Intensity: N/A - Maternal Vital Signs Maternal Temperature: N/A Maternal Blood Pressure: N/A Signs of Preeclampsia: N/A Maternal Respirations: N/A - Pain Assessment Pain Scale Used: Numeric (1 - 10) Pain Intensity: 0 Pain Behavior: None Exhibited - Maternal Trauma Maternal Trauma: N/A - Assessment Baseline FHR: 140 Heart Rate - NICHD Category: Category I (Normal) = 0 NST: Reactive Position: N/A Station: N/A - Total Score Total Score (Pre): 0 - Level of Risk Level of Risk: Low (0-5) Physician Notification (Pre) - Physician Notified Spoke With: maia - Notification Comment Comment: dr carvalho called with reactive nst and order for celestone 12 mg im second dose. to follow up and call office mon am early to make appt to be seen in office mon or . with dr moore. disch home after reactive nst and celestone im given Disposition - Disposition OB Disposition: Physician follow up in office, Written follow up instructions reviewed Discharge Date: 06/07/18 Discharge Time: 17:02 I agree with the RN Medical Screening Exam: Yes Risk & Benefit of care provided described in d/c instruction: Yes Diagnosis: FALSE LABOR BEFORE 37 COMPLETED WEEKS OF GEST, SECOND TRI
== END 2018-06-07 16:30 | disposition home or self-care (01) ==
LOC: FBPOP 15:14
PROVIDERS: ATTEND Obstetrics & Gynecology
DX: O47.03 False labor before 37 completed weeks of gestation, third trimester (principal); Z3A.30 30 weeks gestation of pregnancy
CPT/HCPCS: 59025; 99213; 96372; J0702

== ENCOUNTER 2018-06-20 15:45 | Outpatient (CLI) | payer BC, OTHER ==
[2018-06-20 16:40] VITALS: BP 132/76; PULSE 119; RESP 17; TEMP 97.3
--- NOTE | 2018-07-25 10:06 | P.MSEPDOC ---
Presenting Problems - Arrival Data Date of Arrival on Unit: 06/20/18 Time of Arrival on Unit: 15:45 Mode of Transport: Ambulatory - Complaint OB-Reason for Admission/Chief Complaint: Vaginal Bleeding Comment: pt here with c/o bright red vaginal bleeding noted when wiping after voiding 45 minutes ago, pt denies large gush, reports continued spotting that is bright red, reprots + fm, denies contractions/cramping, reports discomfort in b/l hips since earlier today and a small amt of vaginal pressure, pt has a hx of a cerclage placed 02/2018 and has had BMZx2, pt denies intercourse in last 24 hours, abd soft and non tender Medical History - Information : 6 Para: 2 Term: 2 : 0 Abortions: Spontaneous or Elective: 3 Number of Living Children: 2 - Gestational Age Gestational Age by JENNIFER (wks/days): 31 Weeks and 6 Days Review of Systems - Review of Systems Constitutional: No problems Breast: No problems ENT: No problems Cardiovascular: No problems Respiratory: No problems Gastrointestinal: No problems Genitourinary: No problems Musculoskeletal: No problems Neurological: No problems Skin: No problems Vital Signs - Temperature Temperature: 97.3 F Temperature Source: Temporal Artery Scan - Pulse Right Sitting Brachial Pulse Rate: 119 Pulse Assessment Method: Automatic Cuff - Respirations Respiratory Rate: 17 Oxygen Delivery Method: Room Air O2 Sat by Pulse Oximetry: 100 - Blood Pressure Right Arm Blood Pressure: 132/76 Blood Pressure Mean: 94 Blood Pressure Source: Automatic Cuff Medical Screen Scoring (Pre) - Cervical Exam Dilation: 1-3 cm = 1 Membranes: Intact - Uterine Contractions Frequency: > 5 minutes apart = 1 Duration: > 40 seconds = 2 Intensity: N/A - Maternal Vital Signs Maternal Temperature: N/A Maternal Blood Pressure: N/A Signs of Preeclampsia: N/A Maternal Respirations: N/A - Pain Assessment Pain Location and Character: Left, Right, Hip Pain Scale Used: Numeric (1 - 10) Pain Intensity: 4 Pain Management Goal: 3 Pain Description: *Acute, Aching Pain Radiation Location: none Pain Frequency: Frequent Pain Duration: 1 Pain Duration Units: Hours Pain Behavior: None Exhibited Pain Aggravating Factors: None - Maternal Trauma Maternal Trauma: N/A - Assessment Baseline FHR: 145 Heart Rate - NICHD Category: Category I (Normal) = 0 NST: Reactive Position: N/A Station: N/A - Total Score Total Score (Pre): 4 - Level of Risk Level of Risk: Low (0-5) Physician Notification (Pre) - Physician Notified Physician Notified Date: 06/20/18 Physician Notified Time: 16:18 Physician/Practitioner Notifed:: Dr Fraga Spoke With: Dr Fraga New Order Received: Yes (dc home) Disposition - Disposition OB Disposition: Discharge to home, Written follow up instructions reviewed Discharge Date: 06/20/18 Discharge Time: 16:30 I agree with the RN Medical Screening Exam: Yes Risk & Benefit of care provided described in d/c instruction: Yes Diagnosis: SPOTTING COMPLICATING , THIRD TRIMESTER
== END 2018-06-20 16:30 | disposition home or self-care (01) ==
LOC: FBPOP 15:45
PROVIDERS: ATTEND Obstetrics & Gynecology
DX: O26.853 Spotting complicating pregnancy, third trimester (principal); Z3A.31 31 weeks gestation of pregnancy
CPT/HCPCS: 59025; 99213

== ENCOUNTER 2018-06-29 18:52 | Outpatient (CLI) | payer BC, OTHER ==
[2018-06-29 19:39] LABS: Glucose,Whole Blood 103 mg/dL (75-99)
[2018-06-29 19:41] LABS: Appearance,Urine Clear (Clear); Bilirubin,Urine Negative (Negative); Blood,Urine Negative (Negative); Color,Urine Yellow; Glucose,Urine (UA) Negative (Negative); Ketones,Urine Negative (Negative); Leukocyte Esterase,Urine Negative (Negative); Nitrite,Urine Negative (Negative); Protein,Urine Trace (Negative); Specific Gravity,Urine 1.019 (1.001-1.035); Urobilinogen,Urine <2.0 mg/dL (<2.0)
[2018-06-29 21:08] VITALS: BP 122/68; PULSE 121; RESP 16; TEMP 98.7
--- NOTE | 2018-08-04 12:22 | P.MSEPDOC ---
Presenting Problems - Arrival Data Date of Arrival on Unit: 06/29/18 Time of Arrival on Unit: 18:52 Mode of Transport: Ambulatory - Complaint OB-Reason for Admission/Chief Complaint: Dizziness Medical History - Information : 5 Para: 2 Term: 2 : 0 Abortions: Spontaneous or Elective: 3 Number of Living Children: 2 - History Complications: Incompetent Cervix, Prior Review of Systems - Review of Systems Constitutional: No problems Breast: No problems ENT: No problems Cardiovascular: No problems Respiratory: No problems Gastrointestinal: No problems Genitourinary: No problems Musculoskeletal: No problems Neurological: Dizziness Skin: No problems Vital Signs - Temperature Temperature: 98.7 F Temperature Source: Oral - Pulse Right Sitting Pulse Rate: 121 Pulse Assessment Method: Automatic Cuff - Respirations Respiratory Rate: 16 Oxygen Delivery Method: Room Air O2 Sat by Pulse Oximetry: 98 - Blood Pressure Right Arm Sitting Blood Pressure: 122/68 Blood Pressure Mean: 86 Blood Pressure Source: Automatic Cuff Medical Screen Scoring (Pre) - Cervical Exam Dilation: 1-3 cm = 1 Membranes: Intact - Uterine Contractions Frequency: N/A Duration: N/A Intensity: N/A - Maternal Vital Signs Maternal Temperature: N/A Maternal Blood Pressure: N/A Signs of Preeclampsia: N/A Maternal Respirations: N/A - Assessment - Baby A Baseline FHR: 145 Heart Rate - NICHD Category: Category I (Normal) = 0 NST: Reactive Position: N/A Station: N/A - Total Score - Baby A Total Score - Baby A: 1 - Level of Risk - Baby A Level of Risk - Baby A: Low (0-5) - Pain Assessment Pain Location and Character: Head Pain Scale Used: Numeric (1 - 10) Pain Description: Aching Pain Frequency: Constant Pain Duration: 60 Pain Duration Units: Minutes Pain Behavior: None Exhibited Physician Notification (Pre) - Physician Notified Physician Notified Date: 06/29/18 Physician Notified Time: 20:10 Physician/Practitioner Notifed:: Valentin New Order Received: Yes (d/c home) Disposition - Disposition OB Disposition: Discharge to home, Written follow up instructions reviewed Discharge Date: 06/29/18 Discharge Time: 20:24 I agree with the RN Medical Screening Exam: Yes Risk & Benefit of care provided described in d/c instruction: Yes Diagnosis: DEHYDRATION
== END 2018-06-29 20:24 | disposition home or self-care (01) ==
LOC: FBPOP 18:52
PROVIDERS: ATTEND Obstetrics & Gynecology Obstetrics
DX: O99.280 Endocrine, nutritional and metabolic diseases complicating pregnancy, unspecified trimester (principal); E86.0 Dehydration; Z3A.00 Weeks of gestation of pregnancy not specified
CPT/HCPCS: 59025; 81003; 99213

== ENCOUNTER 2018-07-21 16:50 | Outpatient (CLI) | payer BC, OTHER ==
[2018-07-21 17:38] VITALS: RESP 16; TEMP 98.1
[2018-07-21 22:46] VITALS: BP 130/71; PULSE 104
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
== END 2018-07-21 19:45 | disposition home or self-care (01) ==
LOC: FBPOP 16:50
PROVIDERS: ATTEND Obstetrics & Gynecology
DX: O26.93 Pregnancy related conditions, unspecified, third trimester (principal); Z3A.36 36 weeks gestation of pregnancy
CPT/HCPCS: 59025; 99213

== ENCOUNTER 2018-07-23 03:03 | Outpatient (CLI) | payer BC, OTHER ==
[2018-07-23 03:44] VITALS: BP 139/82; PULSE 115; RESP 15; TEMP 97.2
[2018-07-23] MEDS ORDERED: TERBUTALINE 1 MG/ML VIAL SQ STA (04:17)
[2018-07-23] MEDS ORDERED: LACTATED RINGERS 1,000 ML IV SCH (04:30)
--- NOTE | 2018-08-21 08:09 | P.MSEPDOC ---
Presenting Problems - Arrival Data Date of Arrival on Unit: 07/23/18 Time of Arrival on Unit: 03:03 Mode of Transport: Ambulatory - Complaint OB-Reason for Admission/Chief Complaint: Possible Onset of Labor Comment: Pt states that she has been cramping eery 2-3 mins since 2300 Medical History - Information : 6 Para: 2 Term: 2 : 0 Abortions: Spontaneous or Elective: 3 Number of Living Children: 2 - Gestational Age Gestational Age by JENNIFER (wks/days): 36 Weeks and 4 Days - History Complications: Breech Review of Systems - Review of Systems Constitutional: No problems Breast: No problems ENT: No problems Cardiovascular: No problems Respiratory: No problems Gastrointestinal: No problems Genitourinary: No problems Musculoskeletal: No problems Neurological: No problems Skin: No problems Vital Signs - Temperature Temperature: 97.2 F Temperature Source: Temporal Artery Scan - Pulse Pulse Oximetery Pulse Rate: 115 Pulse Assessment Method: Pulse Oximetry - Respirations Respiratory Rate: 15 Oxygen Delivery Method: Room Air O2 Sat by Pulse Oximetry: 100 - Blood Pressure Right Arm Blood Pressure: 139/82 Blood Pressure Mean: 101 Blood Pressure Source: Automatic Cuff Medical Screen Scoring (Pre) - Cervical Exam Dilation: 1-3 cm = 1 Effacement: Exam Deferred Membranes: Intact - Uterine Contractions Frequency: Scheduled / = 6 Duration: > 40 seconds = 2 Intensity: N/A - Maternal Vital Signs Maternal Temperature: N/A Maternal Blood Pressure: N/A Signs of Preeclampsia: N/A Maternal Respirations: N/A - Maternal Trauma Maternal Trauma: N/A - Assessment - Baby A Baseline FHR: 135 Heart Rate - NICHD Category: Category I (Normal) = 0 NST: Reactive Position: N/A Station: N/A - Total Score - Baby A Total Score - Baby A: 9 - Level of Risk - Baby A Level of Risk - Baby A: Medium (6-9) - Pain Assessment Pain Location and Character: Back, Abdomen Pain Scale Used: Numeric (1 - 10) Pain Intensity: 6 Pain Management Goal: 2 Pain Description: *Acute, Cramping Pain Radiation Location: none Pain Frequency: Intermittent Pain Duration: 4 Pain Duration Units: Hours Pain Behavior: Facial Grimacing, Fidgeting Pain Aggravating Factors: Contractions Medical Screen Scoring (Post) - Cervical Exam Dilation: 1-3 cm = 1 Membranes: Intact - Uterine Contractions Frequency: Scheduled / = 6 Duration: N/A Intensity: N/A - Maternal Vital Signs Maternal Temperature: N/A Maternal Blood Pressure: N/A Signs of Preeclampsia: N/A Maternal Respirations: N/A - Pain Assessment Pain Location and Character: Back Pain Scale Used: Numeric (1 - 10) Pain Intensity: 7 Pain Management Goal: 2 Pain Description: *Acute, Aching Pain Radiation Location: none Pain Frequency: Intermittent Pain Duration: 4 Pain Duration Units: Hours Pain Behavior: Facial Grimacing Pain Aggravating Factors: Contractions - Maternal Trauma Maternal Trauma: N/A - Assessment - Baby A Heart Rate: 135 Heart Rate - NICHD Category: Category I (Normal) = 0 NST: Reactive Position: N/A Station: N/A - Total Score Total Score - Baby A: 7 - Post Treatment Level of Risk Post Treatment Level of Risk - Baby A: Medium (6-9) Physician Notification (Post) - Physician Notified Physician Notified Date: 07/23/18 Physician Notified Time: 05:15 Physician/Practitioner Notified:: DR Ness New Order Received: Yes Disposition - Disposition OB Disposition: Discharge to home Discharge Date: 07/23/18 Discharge Time: 05:35 I agree with the RN Medical Screening Exam: No Physician's MSE Comment: Inadequate documentation Risk & Benefit of care provided described in d/c instruction: No Diagnosis: FALSE LABOR AT OR AFTER 37 COMPLETED WEEKS OF GESTATION
== END 2018-07-23 05:36 | disposition home or self-care (01) ==
LOC: FBPOP 03:03
PROVIDERS: ATTEND Obstetrics & Gynecology
DX: O47.03 False labor before 37 completed weeks of gestation, third trimester (principal); Z3A.36 36 weeks gestation of pregnancy
CPT/HCPCS: 59025; 96360; 99214

== ENCOUNTER 2018-08-08 06:24 | Inpatient (IN) | payer BC, OTHER ==
[2018-08-06 15:40] VITALS: BMI 38.0
[2018-08-08] MEDS ORDERED: CITRIC ACID-SODIUM CITRATE 15 ML CUP PO ONE (06:30)
[2018-08-08] MEDS ORDERED: LACTATED RINGERS 1,000 ML IV ONE (06:30)
[2018-08-08] MEDS ORDERED: ceFAZolin IN SWFI 2 GM/20 ML SYRINGE IVP ONE (06:30)
[2018-08-08 07:03] LABS: Basophils % (A) 0 %; Eosinophils # (A) 0.2 k/uL (0-0.7); Eosinophils % (A) 2 %; HCT 34.9 % (34.0-46.0); HGB 11.4 gm/dL (11.4-16.0); Lymphocytes # (A) 2.4 k/uL (1.0-4.8); Lymphocytes % (A) 24 %; MCH 28.5 pg (25.0-35.0); MCHC 32.8 g/dL (31.0-37.0); Mean Platelet Volume 7.1; Monocytes # (A) 0.5 k/uL (0-1.0); Monocytes % (A) 5 %; Neutrophils # (A) 6.8 k/uL (1.3-7.7); Neutrophils % (A) 68 %; Platelet Count 295 k/uL (150-450); RBC 4.01 m/uL (3.80-5.40); RDW 14.9 % (11.5-15.5)
[2018-08-08] MEDS ORDERED: PHENYLEPHRINE-0.9% NACL SYG 1 MG/10 ML SYRINGE ONE (08:11)
[2018-08-08] MEDS ORDERED: OXYTOCIN 10 UNIT/ML 1 ML VIAL ONE (08:11)
[2018-08-08] MEDS ORDERED: fentaNYL (PF) 50 MCG/ML 2 ML AMP ONE (08:11)
[2018-08-08] MEDS ORDERED: NALBUPHINE 10 MG/ML (1 ML AMP) ONE (08:11)
[2018-08-08] MEDS ORDERED: ONDANSETRON 4 MG/2 ML VIAL ONE (08:11)
[2018-08-08] MEDS ORDERED: MORPHINE SULFATE (PF) 0.3 MG/0.3 ML SYR ONE (08:11)
[2018-08-08] MEDS ORDERED: DEXAMETHASONE SOD PHOS (MDV) 100 MG/10 ML VIAL ONE (08:11)
[2018-08-08] MEDS ORDERED: HYDROcodone/APAP 5-325MG 1 EACH TAB PO PRN (09:14)
[2018-08-08] MEDS ORDERED: NALOXONE 0.4 MG/ML 1 ML VIAL IV PRN (09:14)
[2018-08-08] MEDS ORDERED: ACETAMINOPHEN TAB 325 MG TAB PO PRN (09:14)
[2018-08-08] MEDS ORDERED: diphenhydrAMINE 50 MG CAP PO PRN (09:14)
[2018-08-08] MEDS ORDERED: METOCLOPRAMIDE 5 MG/ML 2 ML VIAL IVP PRN (09:14)
[2018-08-08] MEDS ORDERED: ONDANSETRON 4 MG/2 ML VIAL IVP PRN (09:14)
[2018-08-08] MEDS ORDERED: SIMETHICONE 80 MG CHEWABLE PO PRN (09:14)
[2018-08-08] MEDS ORDERED: diphenhydrAMINE 25 MG CAP PO PRN (09:14)
[2018-08-08] MEDS ORDERED: diphenhydrAMINE 50 MG/ML 1 ML VIAL IVP PRN ×2 (09:14)
[2018-08-08] MEDS ORDERED: ZOLPIDEM 5 MG TAB PO PRN (09:14)
[2018-08-08] MEDS ORDERED: OXYTOCIN 20 UNITS/1000 ML NS 1,000 ML IV SCH (09:15)
--- NOTE | 2018-08-08 09:24 | P.HPOB ---
History of Present Illness H&P Date: 08/08/18 Chief Complaint: 38-6/7 weeks, unstable lie, undesired fertility The patient is a 27-year-old 5 para 2031 admitted at 38-6/7 weeks as established by 6 week ultrasound. She is admitted for primary low-transverse section secondary to a history of 2 previous macrosomic vaginal deliveries with at least 1 significant shoulder dystocia creating significant anxiety and the patient and a recent history in this of unstable lie with the fetus alternating between transverse and vertex presentation. She additionally was diagnosed with possible cervical incompetence in early loss which has led to a cerclage placement with each of her 3 term pregnancies, each cerclage being removed around 37 weeks with subsequent delivery at 39+ weeks. Recent ultrasound demonstrated growth at the 95th percentile or higher. She also had expressed the desire for intraoperative tubal ligation and signed consent to that extent in the office. After discussion of all of the findings, the patient elected to undergo primary low- transverse section with intraoperative tubal ligation for the findings as noted above. She also is known to have a history of herpes but has no ongoing lesions at this time. She is group B strep positive. Obstetrical history: 5 para 2031 with 2 term vaginal deliveries for macrosomic infants, one of which had a significant shoulder dystocia she also has a history of a 16-17 week demise which contributed to the perceived history of cervical incompetence and placement of cerclage is for all 3 p regnancies despite delivering at term with each. She is additionally had 2 early miscarriages one of which required D&C. Current statistics are listed in history of present illness. EDC of 08/16/2018 was established by 6 week ultrasound. Laboratory workup done traits of blood type of A+ with a negative antibody screen. Rubella status is immune. The remainder of the laboratory workup was within normal. Early Glucola as well as second trimester Glucola were within normal limits and group B strep status is positive. Gynecologic history: No history of any significant infections to include STDs aside from the remote history of HSV for which she has had no outbreak string the . Review of Systems Review of systems is confined to history of present illness. Past Medical History Past Medical History: GERD/Reflux Additional Past Medical History / Comment(s): HX incompetent cervix History of Any Multi-Drug Resistant Organisms: MRSA Date of last positivie culture/infection: 09/21/2008 MDRO Source:: Urine Past Surgical History: Adenoidectomy, Tonsillectomy Additional Past Surgical History / Comment(s): D&C X2. Past Anesthesia/Blood Transfusion Reactions: No Reported Reaction Additional Past Anesthesia/Blood Transfusion Reaction / Comment(s): no hx blood transfusion Past Psychological History: Anxiety, Depression, Panic Disorder Additional Psychological History / Comment(s): PAST HX, PER PATIENT Smoking Status: Former smoker Past Alcohol Use History: None Reported Additional Past Alcohol Use History / Comment(s): Quit smoking , started smoking at age 25,<1ppd Past Drug Use History: None Reported - Past Family History Mother Family Medical History: No Reported History Medications and Allergies Home Medications Medication Instructions Recorded Confirmed Type Calcium Carbonate [Tums] 500 mg PO QID PRN 08/06/18 08/08/18 History Pnv No.95/Ferrous Fum/Folic AC 1 each PO DAILY 08/06/18 08/08/18 History [ Multivitamin Tablet] Allergies Allergy/AdvReac Type Severity Reaction Status Date / Time No Known Allergies Allergy Verified 08/08/18 06:30 Exam Vital Signs Temp Pulse Resp BP Pulse Ox 08/08/18 06:30 97.1 F L 106 H 18 119/68 99 In general, this is a well-developed, well-nourished female in no acute distress. Her heart has a regular rhythm and rate without murmur. Her lungs are clear to auscultation bilaterally in all iqbal. Her abdomen is gravid, nondistended, has normal active bowel sounds, is soft, nontender, and without any palpable masses aside from uterine fundus. Her extremities are without any cyanosis, clubbing, or edema and are nontender to palpation bilaterally. Digital cervical examination is deferred at this time. Results Result Diagrams: 08/08/18 06:45 Assessment and Plan (1) Term Current Visit: Yes Status: Acute Code(s): Z34.90 - ENCNTR FOR SUPRVSN OF NORMAL , UNSP, UNSP TRIMESTER SNOMED Code(s): 65723911 (2) Unstable lie of fetus Current Visit: Yes Status: Acute Code(s): O32.0XX0 - MATERNAL CARE FOR UNSTABLE LIE, NOT APPLICABLE OR UNSP SNOMED Code(s): 70852037 (3) Family planning Current Visit: Yes Status: Acute Code(s): Z30.09 - ENCOUNTER FOR OTH GENERAL CNSL AND ADVICE ON CONTRACEPTION SNOMED Code(s): 225982609 (4) History of shoulder dystocia in prior , currently Current Visit: Yes Status: Acute Code(s): O09.299 - SUPRVSN OF PREG W POOR REPRODCTV OR OBSTET HISTORY, UNSP TRI SNOMED Code(s): 01224508 (5) macrosomia in Current Visit: Yes Status: Acute Code(s): O36.60X0 - MATERNAL CARE FOR EXCESS GROWTH, UNSP TRIMESTER, UNSP SNOMED Code(s): 82669812 Plan: The patient is admitted for primary low-transverse section with intraoperative bilateral tubal occlusion using Filshie clips. The indications are as noted above with a recent history of unstable lie as well as suspec marguerite macrosomia in a patient with a history of previous significant shoulder dystocia for a macrosomic infant. There is and complications of the procedures have been thoroughly discussed and she has understood and agreed to proceed.
--- NOTE | 2018-08-08 09:33 | P.OP ---
Date of Procedure: 08/08/18 Preoperative Diagnosis: #1. 38-6/7 weeks, suspected macrosomia #2. History of previous shoulder dystocia #3. Recent unstable lie #4. Undesired fertility Postoperative Diagnosis: Same Procedure(s) Performed: #1. Primary low-transverse section #2. Intraoperative bilateral tubal occlusion with Filshie clips Anesthesia: spinal Surgeon: Todd Fraga [employer] Service Supervisor #1: Dalila Mora Estimated Blood Loss (ml): 500 IV fluids (ml): 900 Urine output (ml): 200 Pathology: none sent Condition: stable Disposition: floor Operative Findings: The patient was taken the operating room where she underwent primary low transverse section and an uncomplicated fashion. She was delivered of a viable 7 lbs. 10 oz. baby girl with Apgars of 9 at 1 minute and 10 at 5 minutes delivered in the vertex in occiput anterior position. The placenta was delivered manually, intact, and grossly normal with a grossly normal three- vessel cord. The uterus, tubes, and ovaries were entirely normal to inspection. Description of Procedure: The patient was prepped and draped in usual fashion after spinal anesthesia was administered by the anesthesiologist. A Pfannenstiel incision was made and extended into the abdominal cavity without difficulty. The bladder peritoneum was significantly distal to the intended site of incision and was left intact. A 2 cm incision was made in the transverse plane of the lower uterine segment to enter the uterus at which time clear fluid was noted. The incision was extended in both directions using the bandage scissors. The head was delivered up and through the incision where the nose and mouth were thoroughly suctioned. Remainder of the infant was delivered onto the field where the cord was doubly clamped, cut, and the passed resuscitative measures with weight and Apgars as noted above. A segment of cord was then doubly clamped, cut, and set aside should cord gases become necessary. The placenta was delivered manually and intact as noted above. The uterus was exteriorized and the interior cavity of the uterus swept of any remaining placental or membranous fragments. The incision was grasped with Santizo clamps and closed in a single running locking stitch of 0 chromic catgut from margin to margin. One point of bleeding in the middle left portion was made hemostatic with a toizne-jf-dmein stitch of 0 chromic catgut. Any small points of bleeding were made hemostatic with the Bovie. The posterior cul-de-sac was suctioned using a guard followed by a laparotomy sponge. The uterus was replaced within the abdominal cavity and the gutters were swept of any remaining blood, fluid, or clot. The incision was reexamined and noted to be hemostatic. The parietal peritoneum was loosely reapproximated and the layer of muscles examined and made hemostatic with the Bovie. The fascia was closed with 2 running stitches of 0 Vicryl proceeding from the lateral margins to the midpoint. The subcutaneous tissues were irrigated and made hemostatic with the Bovie. As there was no significant depth, they were not closed primarily. The skin was reapproximated with the running subcuticular stitch of 4-0 Vicryl from margin to margin followed by half-inch Steri-Strips placed with Mastisol. Estimated blood loss for the case is approximately 500 mL. There were no complications. All sponge, instrument, and needle counts were correct. The patient tolerated the procedure well and proceeded to the recovery room in stable condition. Both mother and are resting comfortably in recovery.
[2018-08-08] MEDS: KETOROLAC 30 MG/ML 1 ML VIAL IVP PRN ×2 (10:39→20:18)
[2018-08-08] MEDS: LACTATED RINGERS 1,000 ML IV SCH ×4 (23:01→23:03)
[2018-08-08] MEDS: SENNOSIDES-DOCUSATE SODIUM 1 EACH TAB PO SCH (23:01)
--- NOTE | 2018-08-09 05:29 | P.PN ---
Subjective Progress Note Date: 08/09/18 Principal diagnosis: Postoperative day #1 Positive flatus. Urinating. Pain well controlled. No complaints. Objective - Vital Signs Vital signs: Vital Signs Temp 97.9 F 08/09/18 00:00 Pulse 85 08/09/18 00:00 Resp 16 08/09/18 00:00 BP 132/61 08/09/18 00:00 Pulse Ox 98 08/08/18 20:00 Intake & Output 08/08/18 08/08/18 08/09/18 06:59 18:59 06:59 Intake Total 250 Output Total 500 200 Balance -250 -200 Intake: Oral 250 Output: Urine 500 200 Other: # Voids 1 - Constitutional General appearance: Present: morbidly obese - EENT Eyes: Present: PERRLA ENT: Present: hearing grossly normal - Neck Neck: Present: normal ROM Thyroid: bilateral: normal size - Respiratory Respiratory: bilateral: CTA - Cardiovascular Rhythm: regular - Gastrointestinal General gastrointestinal: Present: normal bowel sounds - Genitourinary Genitourinary Comment(s): Incision clean and dry, intact, Steri-Strips applied. Fundus firm, midline, symmetric, 18 week size, nontender. - Integumentary Integumentary: Present: normal - Neurologic Neurologic: Present: CNII-XII intact - Musculoskeletal Musculoskeletal: Present: gait normal, generalized weakness - Psychiatric Psychiatric: Present: A&O x's 3, appropriate affect, intact judgment & insight - Labs CBC & Chem 7: 08/08/18 06:45 Assessment and Plan Assessment: Doing well postoperative day #1. Plan: Continue care. Likely discharge home tomorrow. Time with Patient: Less than 30
[2018-08-09 06:52] LABS: Anisocytosis Slight; Basophils # (A) 0.1 k/uL (0-0.2); Basophils % (A) 1 %; Eosinophils # (A) 0.1 k/uL (0-0.7); Eosinophils % (A) 1 %; HCT 27.6 % (34.0-46.0); Lymphocytes # (A) 2.7 k/uL (1.0-4.8); Lymphocytes % (A) 20 %; MCHC 33.6 g/dL (31.0-37.0); MCV 86.4 fL (80.0-100.0); Mean Platelet Volume 8.1; Monocytes # (A) 0.7 k/uL (0-1.0); Monocytes % (A) 5 %; Neutrophils # (A) 9.8 k/uL (1.3-7.7); Neutrophils % (A) 72 %; Platelet Count 253 k/uL (150-450); RDW 16.2 % (11.5-15.5); WBC 13.6 k/uL (3.8-10.6)
[2018-08-09 06:59] LABS: HGB 9.3 gm/dL (11.4-16.0)
[2018-08-09] MEDS: LACTATED RINGERS 1,000 ML IV SCH ×4 (07:27→22:34)
[2018-08-09] MEDS: SENNOSIDES-DOCUSATE SODIUM 1 EACH TAB PO SCH ×2 (09:16→20:51)
[2018-08-09] MEDS: KETOROLAC 30 MG/ML 1 ML VIAL IVP PRN (09:17)
[2018-08-09] MEDS: HYDROcodone/APAP 7.5-325MG 1 EACH TAB PO PRN ×2 (13:01→20:52)
[2018-08-09] MEDS: IBUPROFEN 600 MG TAB PO PRN (17:14)
[2018-08-10] MEDS: IBUPROFEN 600 MG TAB PO PRN ×2 (00:08→11:15)
[2018-08-10] MEDS: HYDROcodone/APAP 7.5-325MG 1 EACH TAB PO PRN (05:13)
[2018-08-10] MEDS: SENNOSIDES-DOCUSATE SODIUM 1 EACH TAB PO SCH (08:26)
[2018-08-10 08:59] VITALS: BP 135/72; PULSE 107; RESP 18; TEMP 98.1
--- NOTE | 2018-08-10 09:58 | P.DS ---
Providers Date of admission: 08/08/18 06:24 Expected date of discharge: 08/10/18 Attending physician: Todd Fraga Primary care physician: Stated None Hospital Course: This is a 27-year-old black female 6 para 2032 EDC 08/16/2018 at 38-6/7 weeks' gestation. Patient presented for repeat low transverse section and tubal ligation for undesired fertility. was remarkable for positive group B strep cultures, rubella status immune, blood type A+. Please see dictated history and physical for details. Patient underwent repeat low transverse section and tubal ligation. She gave to a liveborn female infant with scores of 9 and 10 at one and 5 minutes respectively. Infant weighed 7 lbs. 10 oz. or 3450 g. Filshie clips were applied to the tubes. Surgery was unremarkable, please see dictated operative note for details. This morning the patient is doing well. She is voiding, ambulating and passing flatus without difficulty. Vital signs are stable and she is afebrile. Fundus is firm and in the midline, symmetric and 18 week size. Extremities are negative for edema. Chest is clear in all iqbal. Breasts are not engorged. She declines the offer for a breast pump. is doing well and has been discharged by director sales training. Patient's extremities are negative, no CVA tenderness. Incision is clean and dry, intact with Steri-Strips applied. She is judged to be in very good condition for discharge home. Patient will follow-up in the office with her primary physician in 2 weeks. She is reminded no intercourse, tampons or douching. She will use [id number]-peykaud Advil or Aleve, or ibuprofen products as needed for pain. She will call with any fevers shakes or chills, foul smelling or copious lochia, with the passage of large blood clots, with any pain not alleviated by [id number]-rgabrxi products, with any incisional concerns, or indeed with any questions or issues. Plan - Discharge Summary New Discharge Prescriptions: No Action Pnv No.95/Ferrous Fum/Folic AC [ Multivitamin Tablet] 1 each PO DAILY Calcium Carbonate [Tums] 500 mg PO QID PRN PRN Reason: GERD Discharge Medication List Calcium Carbonate [Tums] 500 mg PO QID PRN 08/06/18 [History] Pnv No.95/Ferrous Fum/Folic AC [ Multivitamin Tablet] 1 each PO DAILY 08/06/18 [History] Follow up Appointment(s)/Referral(s): Todd Fraga MD [STAFF PHYSICIAN] - 2 Weeks
== END 2018-08-10 12:00 | disposition home or self-care (01) | DRG 785 ==
LOC: 4FBP 06:24
PROVIDERS: ADMIT Obstetrics & Gynecology; ATTEND Obstetrics & Gynecology
PROC: 0UL70CZ Occlusion of Bilateral Fallopian Tubes with Extraluminal Device, Open Approach (ICD-10-PCS; 2018-08-08)
PROC: 10D00Z1 Extraction of Products of Conception, Low, Open Approach (ICD-10-PCS; principal; 2018-08-08 08:00)
DX: O36.60X0 Maternal care for excessive fetal growth, unspecified trimester, not applicable or unspecified (principal); O99.824 Streptococcus B carrier state complicating childbirth; K21.9 Gastro-esophageal reflux disease without esophagitis; O99.62 Diseases of the digestive system complicating childbirth; Z30.2 Encounter for sterilization; Z3A.38 38 weeks gestation of pregnancy; Z37.0 Single live birth; Z98.890 Other specified postprocedural states; Z86.14 Personal history of Methicillin resistant Staphylococcus aureus infection; Z87.891 Personal history of nicotine dependence; Z86.59 Personal history of other mental and behavioral disorders
CPT/HCPCS: 85025; 86850; 86900; 86901

== ENCOUNTER → 2019-10-02 | Outpatient (CLI) | payer OTHER ==
--- NOTE | 2019-10-02 18:37 | US ---
EXAMINATION TYPE: US carotid duplex BILAT DATE OF EXAM: 10/02/2019 COMPARISON: NONE CLINICAL HISTORY: Z87.898, R53.83, R51. Syncope EXAM MEASUREMENTS: RIGHT: Peak Systolic Velocity (PSV) cm/sec ----- Right CCA: 139.9 ----- Right ICA: 194.0 ----- Right ECA: 137.2 ICA/CCA ratio: 1.4 RIGHT: End Diastole cm/sec ----- Right CCA: 49.4 ----- Right ICA: 37.9 ----- Right ECA: 22.9 LEFT: Peak Systolic Velocity (PSV) cm/sec ----- Left CCA: 123.3 ----- Left ICA: 129.2 ----- Left ECA: 133.2 ICA/CCA ratio: 1.0 LEFT: End Diastole cm/sec ----- Left CCA: 38.6 ----- Left ICA: 48.5 ----- Left ECA: 16.9 VERTEBRALS (direction of flow): Right Vertebral: Antegrade Left Vertebral: Antegrade Rhythm: Arrhythmia No significant stenosis seen IMPRESSION: 1. There were no significant hemodynamic stenosis. 2. Cardiac dysrhythmia. Criteria for Assigning % of Stenosis / Diameter reduction (Estimation based on the indirect measurements of the internal carotid artery velocities (ICA PSV). 1. Normal (no stenosis)=ICA PSV < 125 cm/s: ratio < 2.0: ICA EDV<40 cm/s. 2. Less than 50% stenosis=ICA PSV < 125 cm/s: ratio < 2.0: ICA EDV<40 cm/s. 3. 50 to 69% stenosis=ICA PSV of 125 to 230 cm/s: ration 2.0 ? 4.0: ICA EDV 40-100 cm/s. 4. Greater than 70% stenosis to near occlusion= ICA PSV > 230 cm/s: ratio > 4.0: ICA EDV > 100 cm/s. 5. Near occlusion= ICA PSV velocities may be low or undetectable: variable ratio and ICA EDV. 6. Total occlusion=unable to detect flow.
== END | disposition home or self-care (01) ==
LOC: RADUSWWP 15:37
PROVIDERS: ATTEND Family Medicine
DX: I49.9 Cardiac arrhythmia, unspecified (principal); R53.83 Other fatigue; Z87.898 Personal history of other specified conditions
CPT/HCPCS: 93880

== ENCOUNTER → 2019-10-20 | Outpatient (CLI) | payer OTHER ==
--- NOTE | 2019-10-20 14:01 | MR ---
EXAMINATION TYPE: MR brain wo con DATE OF EXAM: 10/20/2019 12:15 PM COMPARISON: NONE HISTORY: Headaches, intermittent palpitations, syncope Multiplanar and multispin-echo imaging of the brain was performed . The ventricles, basal cisterns and sulci overlying the cerebral convexities are within normal limits. There is no evidence for midline shift or mass effect. Acute intracranial hemorrhage or extra-axial collection is not evident. The brain parenchyma reveals no abnormal increased signal. No acute edema is identified. The paranasal sinuses and mastoid air cells are well-aerated. IMPRESSION: Unremarkable MRI of the brain.
== END | disposition home or self-care (01) ==
LOC: RADMRIMAIN 11:44
PROVIDERS: ATTEND Family Medicine
DX: R00.2 Palpitations (principal); R51 Headache; Z86.79 Personal history of other diseases of the circulatory system
CPT/HCPCS: 70551

== ENCOUNTER 2022-01-16 06:24 | Emergency (ER) | payer OTHER ==
[2022-01-16] MEDS ORDERED: KETOROLAC 15 MG/ML 1 ML VIAL IVP STA (06:44)
--- NOTE | 2022-01-16 06:51 | ED ---
Chest Pain HPI - General Chief Complaint: Chest Pain Stated Complaint: Chest Pain Time Seen by Provider: 01/16/22 06:30 Source: patient, RN notes reviewed Mode of arrival: ambulatory Limitations: no limitations - History of Present Illness Initial Comments: Patient is a 31 year old female presenting to the ER with a chief compliant of chest pain. She states this has been going on for the past three days. Patient described it as left upper chest pain with numbness in her left arm. She also has pain over her left thenar eminence. Patient does report she has been under a lot of stress lately. Denies shortness or breath, leg pain or swelling, or recent travel. Patient states she has seen cardiology in the past for persistent tachycardia when she was . Patient states she occasionally does have episodes of this. She denies any prior hypertension hyperlipidemia states she has pain in her shoulder region - Related Data Previous Rx's Medication Instructions Recorded Cyclobenzaprine [Flexeril] 10 mg PO TID PRN #15 tab 01/16/22 Ibuprofen [Motrin] 600 mg PO Q8HR PRN #30 tab 01/16/22 Allergies Allergy/AdvReac Type Severity Reaction Status Date / Time No Known Allergies Allergy Verified 01/16/22 07:51 Review of Systems ROS Statement: Those systems with pertinent positive or pertinent negative responses have been documented in the HPI. ROS Other: All systems not noted in ROS Statement are negative. EKG Findings - EKG Comments: EKG Findings:: EKG performed at 6:37 sinus tachycardia with a rate of 15 NJ 154 QRS 78 QT/QTC 320/[address] elevation or depression noted - EKG Results: EKG: interpreted by JEREL Past Medical History Past Medical History: No Reported History Additional Past Medical History / Comment(s): incompetent cervix History of Any Multi-Drug Resistant Organisms: MRSA Date of last positivie culture/infection: 09/21/2008 MDRO Source:: Urine Past Surgical History: Adenoidectomy, Tonsillectomy Additional Past Surgical History / Comment(s): D&C Past Anesthesia/Blood Transfusion Reactions: No Reported Reaction Additional Past Anesthesia/Blood Transfusion Reaction / Comment(s): no hx blood transfusion Past Psychological History: Anxiety Smoking Status: Current some day smoker Past Alcohol Use History: None Reported Past Drug Use History: None Reported - Past Family History Mother Family Medical History: No Reported History General Exam Limitations: no limitations Course Vital Signs 01/16/22 01/16/22 06:26 07:27 Temperature 97.8 F Pulse Rate 104 H 101 H Respiratory 16 18 Rate Blood Pressure 139/95 131/92 O2 Sat by Pulse 98 100 Oximetry Chest Pain MDM - MDM 31-year-old presented for left arm pain, shoulder discomfort. Patient symptoms seem to be related to cervical radiculopathy, atypical chest pain workup including d-dimer and troponin is unremarkable. Patient does have a history of tachycardia. Patient will be discharged with anti-inflammatories and follow-up. Disposition Clinical Impression: Atypical chest pain, Cervical radiculopathy Disposition: HOME SELF-CARE Condition: Stable Instructions (If sedation given, give patient instructions): Chest Pain (ED) Additional Instructions: Please return to the Emergency Department if symptoms worsen or any other concerns. Prescriptions: Cyclobenzaprine [Flexeril] 10 mg PO TID PRN #15 tab PRN Reason: Muscle Spasm Ibuprofen [Motrin] 600 mg PO Q8HR PRN #30 tab PRN Reason: Pain Is patient prescribed a controlled substance at d/c from ED?: No Referrals: Marcia Donnelly MD [Primary Care Provider] - 1-2 days Time of Disposition: 07:55
[2022-01-16 07:14] LABS: Basophils # (A) 0.1 k/uL (0-0.2); Basophils % (A) 1 %; Eosinophils # (A) 0.1 k/uL (0-0.7); Eosinophils % (A) 2 %; HGB 13.4 gm/dL (11.4-16.0); Lymphocytes # (A) 2.2 k/uL (1.0-4.8); Lymphocytes % (A) 33 %; MCH 29.9 pg (25.0-35.0); MCHC 33.6 g/dL (31.0-37.0); MCV 88.9 fL (80.0-100.0); Mean Platelet Volume 8.4; Monocytes # (A) 0.2 k/uL (0-1.0); Monocytes % (A) 4 %; Neutrophils # (A) 3.8 k/uL (1.3-7.7); Neutrophils % (A) 58 %; Platelet Count 250 k/uL (150-450); RDW 14.3 % (11.5-15.5); WBC 6.6 k/uL (3.8-10.6)
[2022-01-16 07:29] VITALS: RESP 18
[2022-01-16 07:30] LABS: ALT 16 U/L (4-34); AST 19 U/L (14-36); African American GFR (CKD) >90 (>60 ml/min/1.73 sqM); Albumin 4.6 g/dL (3.5-5.0); Alkaline Phosphatase 110 U/L (38-126); Anion Gap 7 mmol/L; Blood Urea Nitrogen 8 mg/dL (7-17); Calcium 9.3 mg/dL (8.4-10.2); Carbon Dioxide 28 mmol/L (22-30); Chloride 105 mmol/L (98-107); Glucose 89 mg/dL (74-99); Magnesium 2.1 mg/dL (1.6-2.3); Non-African American GFR(CKD) >90 (>60 ml/min/1.73 sqM); Potassium 3.6 mmol/L (3.5-5.1); Sodium 140 mmol/L (137-145); Total Bilirubin 0.4 mg/dL (0.2-1.3); Total Protein 7.7 g/dL (6.3-8.2)
[2022-01-16 07:32] LABS: INR 0.9 (<1.2); Prothrombin Time 10.3 sec (9.0-12.0)
--- NOTE | 2022-01-16 07:44 | XR ---
EXAMINATION TYPE: XR chest 2V DATE OF EXAM: 01/16/2022 7:03 AM COMPARISON: Chest radiographs from 04/13/2014. TECHNIQUE: XR chest 2V Frontal and lateral views of the chest. CLINICAL INDICATION:Female, 31 years old with history of Chest Pain; FINDINGS: Lungs/Pleura: There is no evidence of pleural effusion, focal consolidation, or pneumothorax. Pulmonary vascularity: Unremarkable. Heart/mediastinum: Cardiomediastinal silhouette is unremarkable. Musculoskeletal: No acute osseous pathology. IMPRESSION: No acute cardiopulmonary disease/process.
[2022-01-16 08:15] VITALS: BP 121/74; PULSE 98; TEMP 98.1
== END 2022-01-16 08:15 | disposition home or self-care (01) ==
LOC: EC 06:24
DX: R07.89 Other chest pain (principal); M54.12 Radiculopathy, cervical region; F17.200 Nicotine dependence, unspecified, uncomplicated; F41.9 Anxiety disorder, unspecified
CPT/HCPCS: 36415; 93005; 85379; 80053; 83735; 84484; 85025; 85610; 85730; 71046; 99285; 96374; J1885; 99284

== ENCOUNTER 2022-05-30 02:04 | Emergency (ER) | payer OTHER ==
[2022-05-30 02:12] VITALS: TEMP 97.5
[2022-05-30] MEDS ORDERED: MORPHINE SULFATE 4 MG/ML SYRINGE IM STA (02:36)
--- NOTE | 2022-05-30 03:05 | ED ---
Abdominal Pain HPI - General Chief Complaint: Abdominal Pain Stated Complaint: lower abd pain,back pain Time Seen by Provider: 05/30/22 02:14 Source: patient Mode of arrival: ambulatory Limitations: no limitations - History of Present Illness Initial Comments: Patient is a 31-year-old female presenting with chief complaint of pelvic pain. Patient states that she has routinely had this pain for several months. Patient states her LMP was about 2 weeks ago. She is admitting to cramping pain located on each side of the pelvis. She admits to some lower back pain as well. No nausea or vomiting. No vaginal bleeding or discharge. No diarrhea, hematochezia, melena. No fevers or chills. No dysuria or hematuria. - Related Data Previous Rx's Medication Instructions Recorded Cyclobenzaprine [Flexeril] 10 mg PO TID PRN #15 tab 01/16/22 Ibuprofen [Motrin] 600 mg PO Q8HR PRN #30 tab 01/16/22 Allergies Allergy/AdvReac Type Severity Reaction Status Date / Time No Known Allergies Allergy Verified 01/16/22 07:51 Review of Systems ROS Statement: Those systems with pertinent positive or pertinent negative responses have been documented in the HPI. ROS Other: All systems not noted in ROS Statement are negative. Past Medical History Past Medical History: No Reported History Additional Past Medical History / Comment(s): incompetent cervix History of Any Multi-Drug Resistant Organisms: MRSA Date of last positivie culture/infection: 09/21/2008 MDRO Source:: Urine Past Surgical History: Adenoidectomy, Tonsillectomy Additional Past Surgical History / Comment(s): D&C Past Anesthesia/Blood Transfusion Reactions: No Reported Reaction Additional Past Anesthesia/Blood Transfusion Reaction / Comment(s): no hx blood transfusion Past Psychological History: Anxiety Smoking Status: Current some day smoker Past Alcohol Use History: None Reported Past Drug Use History: None Reported - Past Family History Mother Family Medical History: No Reported History General Exam Limitations: no limitations General appearance: alert, in no apparent distress Head exam: Present: atraumatic, normocephalic, normal inspection Eye exam: Present: normal appearance Neck exam: Present: normal inspection, full ROM Respiratory exam: Present: normal lung sounds bilaterally. Absent: respiratory distress, wheezes, rales, rhonchi, stridor Cardiovascular Exam: Present: regular rate, normal rhythm, normal heart sounds. Absent: systolic murmur, diastolic murmur, rubs, gallop, clicks GI/Abdominal exam: Present: soft. Absent: distended, tenderness, guarding, rebound, rigid Neurological exam: Present: alert, oriented X3, CN II-XII intact Psychiatric exam: Present: normal affect, normal mood Skin exam: Present: warm, dry, intact, normal color. Absent: rash Course Vital Signs 05/30/22 05/30/22 02:07 04:13 Temperature 97.5 F L Pulse Rate 90 82 Respiratory 14 16 Rate Blood Pressure 115/77 120/77 O2 Sat by Pulse 100 98 Oximetry Medical Decision Making - Medical Decision Making Was pt. sent in by a medical professional or institution (, PA, LINING MACHINE OPERATOR, urgent care, hospital, or fdc...) When possible be specific @ -No Did you speak to anyone other than the patient for history (EMS, parent, family, police, friend...)? What history was obtained from this source @ -No Did you review nursing and triage notes (agree or disagree)? Why? @ -I reviewed and agree with nursing and triage notes Were old charts reviewed (outside hosp., previous admission, EMS record, old EKG, old radiological studies, urgent care reports/EKG's, fdc records)? Report findings @ -No old charts were reviewed Differential Diagnosis (chest pain, altered mental status, abdominal pain women, abdominal pain men, vaginal bleeding, weakness, fever, dyspnea, syncope, headache, dizziness, GI bleed, back pain, seizure, CVA, palpatations, mental health, musculoskeletal)? @ -[facility] Differential Abdominal Pain Women: Appendicitis, Cholecystitis, diverticulosis, ischemic bowel, pancreatitis, hepatitis, UTI, gastroenteritis, AAA, incarcerated hernia, bowel obstruction, constipation, inflammatory bowel, hepatitis, peptic ulcer disease, splenic infarction, perforated viscus, vulvitis, ovarian torsion, PID, kidney stone, p lacenta abruption... This is not meant to be an all-inclusive list EKG interpreted by me (3pts min.). @ -As above X-rays interpreted by me (1pt min.). @ -None done CT interpreted by me (1pt min.). @ -None done U/S interpreted by me (1pt. min.). @ -None done What testing was considered but not performed or refused? (CT, X-rays, U/S, labs)? Why? @ -None What meds were considered but not given or refused? Why? @ -None Did you discuss the management of the patient with other professionals (professionals i.e. , PA, LINING MACHINE OPERATOR, lab, RT, psych nurse, social group worker, blower room attendant, teacher, contact officer, returned case inspector)? Give summary @ -No Was smoking cessation discussed for >3mins.? @ -No Was critical care preformed (if so, how long)? @ -No Were there social determinants of health that impacted care today? How? (Homelessness, low income, unemployed, alcoholism, drug addiction, transportation, low edu. Level, literacy, decrease access to med. care, [place] [facility], rehab)? @ -No Was there de-escalation of care discussed even if they declined (Discuss DNR or withdrawal of care, Hospice)? DNR status @ -No What co-morbidities impacted this encounter? (DM, HTN, Smoking, COPD, CAD, Cancer, CVA, ARF, Chemo, Hep., AIDS, mental health diagnosis, sleep apnea, morbid obesity)? @ -None Was patient admitted / discharged? Hospital course, mention meds given and route, prescriptions, significant lab abnormalities, going to OR and other pertinent info. @ -Patient is a 32-year-old female presenting with chief complaint of bilateral lower abdominal pain. Patient states that she has had recurrent pain for several months. Denies any vaginal bleeding or discharge. No fevers or chills. No urinary symptoms physical examination is unremarkable. Urine shows no sign of infectious process or bleeding. HCG is negative. Follow-up with [facility]. Follow-up with PCP. Report back to ER with any new or worsening symptoms. Discussed return parameters and answered all questions. Patient conveyed verbal understanding and agreed to the plan. I discussed this case in detail with my attending Dr. Tsang Undiagnosed new problem with uncertain prognosis? @ -No Drug Therapy requiring intensive monitoring for toxicity (Heparin, Nitro, Insulin, Cardizem)? @ -No Were any procedures done? @ -No Diagnosis/symptom? @ -Pelvic pain Acute, or Chronic, or Acute on Chronic? @ -Acute Uncomplicated (without systemic symptoms) or Complicated (systemic symptoms)? @ -Uncomplicated Side effects of treatment? @ -No Exacerbation, Progression, or Severe Exacerbation? @ -No Poses a threat to life or bodily function? How? (Chest pain, [place], [place], pneumonia, PE, COPD, DKA, ARF, appy, cholecystitis, CVA, Diverticulitis, Homicidal, Suicidal, threat to staff... and all critical care pts) @ -No - Lab Data Lab Results 05/30/22 05/30/22 Range/Units 03:03 03:03 Urine Color Yellow Urine Appearance Clear (Clear) Urine pH 6.0 (5.0-8.0) Ur Specific [place] 1.028 (1.001-1.035) Urine Protein Trace H (Negative) Urine Glucose (UA) Negative (Negative) Urine Ketones Negative (Negative) Urine Blood Small H (Negative) Urine Nitrite Negative (Negative) Urine Bilirubin Negative (Negative) Urine Urobilinogen <2.0 (<2.0) mg/dL Ur Leukocyte Esterase Trace H (Negative) Urine RBC 2 (0-5) /hpf Urine WBC 2 (0-5) /hpf Ur Squamous Epith Cells 2 (0-4) /hpf Urine Mucus Occasional H (None) /hpf Urine HCG, Qual Not Detected (Not Detectd) Disposition Clinical Impression: Pelvic pain Disposition: HOME SELF-CARE Condition: Good Instructions (If sedation given, give patient instructions): Pelvic Pain in Women (ED) Additional Instructions: Follow-up with PCP. Report back to ER with any new or worsening symptoms. Follow-up with [facility]. Is patient prescribed a controlled substance at d/c from ED?: No Referrals: Marcia Donnelly MD [Primary Care Provider] - 1-2 days Bridget Marin MD [STAFF PHYSICIAN] - 1-2 days Time of Disposition: 03:44
[2022-05-30 03:29] LABS: Appearance,Urine Clear (Clear); Bilirubin,Urine Negative (Negative); Blood,Urine Small (Negative); Color,Urine Yellow; Glucose,Urine (UA) Negative (Negative); Ketones,Urine Negative (Negative); Leukocyte Esterase,Urine Trace (Negative); Mucus,Urine Occasional /hpf; Nitrite,Urine Negative (Negative); Protein,Urine Trace (Negative); RBC,Urine 2 /hpf (0-5); Specific Gravity,Urine 1.028 (1.001-1.035); Squamous Epithelial Cell,Urine 2 /hpf (0-4); Urobilinogen,Urine <2.0 mg/dL (<2.0); WBC,Urine 2 /hpf (0-5)
[2022-05-30 04:21] VITALS: PULSE 82; RESP 16
[2022-05-30 04:22] VITALS: BP 120/77
== END 2022-05-30 04:22 | disposition home or self-care (01) ==
LOC: EC 02:04
DX: R10.2 Pelvic and perineal pain (principal); F41.9 Anxiety disorder, unspecified; F17.200 Nicotine dependence, unspecified, uncomplicated
CPT/HCPCS: 81001; 81025; 99284; 96372; J2270